=== PATIENT | female | born 1990 | race Caucasian/White ===

== ENCOUNTER 2017-10-24 13:55 | Emergency (ER) | payer BC ==
--- NOTE | 2017-10-24 15:13 | ED ---
Psych HPI - General Chief Complaint: Psychiatric Symptoms Stated Complaint: psych eval Time Seen by Provider: 10/24/17 14:04 Source: patient Mode of arrival: ambulatory - History of Present Illness Initial Comments: This patient is a 27-year-old woman who was sent here by her primary physician to have a psychiatric evaluation. The patient had seen her physician today and was describing having thoughts of ending her life. The patient states that she has long-standing history of depression, and had been taking Trintellix until recently had stopped due to adverse side effects. She states that since that time her depression appears to be somewhat worse and over the past few days to weeks she has had thoughts of suicide. The patient states that since she left her physician's office she has had a chance to speak with her mother and her sister, and she does not feel she is at acute risk of harming herself. She states she doesn't believe she needs to be admitted in the hospital now. She does see an outpatient counselor and she states that she has an existing appointment for tomorrow. MD Complaint: suicidal ideation, feels depressed -: days(s) Associated Psychiatric Symptoms: depression History of same: Yes Quality: getting worse Improves With: therapy, other Worsens With: none Context: not taking psychiatric medications Associated Symptoms: denies other symptoms - Related Data Home Medications Medication Instructions Recorded Confirmed Norgestimate-Ethinyl Estradiol 1 tab PO HS 09/20/17 10/24/17 [Sprintec 28 Day Tablet] Acetaminophen Tab [Tylenol Tab] 650 mg PO Q6H PRN 10/24/17 10/24/17 Allergies Allergy/AdvReac Type Severity Reaction Status Date / Time adhesive tape Allergy Rash/Hives Verified 10/24/17 14:19 bee venom protein (honey bee) Allergy Swelling Verified 10/24/17 14:19 vortioxetine Allergy Itching Verified 10/24/17 14:19 [From Trintellix] Review of Systems ROS Statement: Those systems with pertinent positive or pertinent negative responses have been documented in the HPI. ROS Other: All systems not noted in ROS Statement are negative. Constitutional: Denies: fever Respiratory: Denies: cough, dyspnea Cardiovascular: Denies: chest pain, palpitations, edema Gastrointestinal: Denies: abdominal pain, vomiting, diarrhea Genitourinary: Denies: dysuria Musculoskeletal: Denies: back pain Psychiatric: Reports: depression, suicidal thoughts. Denies: anxiety, auditory hallucinations, visual hallucinations, homicidal thoughts Past Medical History Past Medical History: No Reported History History of Any Multi-Drug Resistant Organisms: None Reported Past Surgical History: Adenoidectomy, Tonsillectomy Past Psychological History: Anxiety, Depression Smoking Status: Never smoker Past Alcohol Use History: None Reported Past Drug Use History: None Reported General Exam Limitations: no limitations General appearance: alert, in no apparent distress, obese Head exam: Present: atraumatic, normocephalic Eye exam: Present: normal appearance. Absent: scleral icterus, conjunctival injection ENT exam: Present: normal oropharynx Neck exam: Present: normal inspection Respiratory exam: Present: normal lung sounds bilaterally. Absent: respiratory distress, wheezes, rales, rhonchi, stridor Cardiovascular Exam: Present: regular rate, normal rhythm, normal heart sounds. Absent: systolic murmur, diastolic murmur, rubs, gallop Neurological exam: Present: alert, oriented X3, normal gait Psychiatric exam: Present: normal affect, depressed, suicidal ideation. Absent : agitated, anxious, flat affect, manic, homicidal ideation Skin exam: Present: warm, dry, intact, normal color. Absent: rash Course Vital Signs 10/24/17 14:10 Temperature 98.2 F Pulse Rate 90 Respiratory 16 Rate Blood Pressure 167/79 O2 Sat by Pulse 99 Oximetry Medical Decision Making - Lab Data Lab Results 10/24/17 Range/Units 15:30 Urine Opiates Screen Not Detected (NotDetected) Ur Oxycodone Screen Not Detected (NotDetected) Urine Methadone Screen Not Detected (NotDetected) Ur Propoxyphene Screen Not Detected (NotDetected) Ur Barbiturates Screen Not Detected (NotDetected) U Tricyclic Antidepress Not Detected (NotDetected) Ur Phencyclidine Scrn Not Detected (NotDetected) Ur Amphetamines Screen Not Detected (NotDetected) U Methamphetamines Scrn Not Detected (NotDetected) U Benzodiazepines Scrn Not Detected (NotDetected) Urine Cocaine Screen Not Detected (NotDetected) U Marijuana (THC) Screen Not Detected (NotDetected) Disposition Clinical Impression: Mood disorder Disposition: HOME SELF-CARE Condition: Good Instructions: Mood Disorders (ED) Referrals: Ana Fox III, MD [Primary Care Provider] - 1-2 days
[2017-10-24 15:51] LABS: Amphetamine Screen,Urine Not Detected (NotDetected); Barbiturate Screen,Urine Not Detected (NotDetected); Benzodiazepines Screen,Urine Not Detected (NotDetected); Cocaine Screen,Urine Not Detected (NotDetected); Methadone Screen, Urine Not Detected (NotDetected); Opiate Screen,Urine Not Detected (NotDetected); Oxycodone Screen, Urine Not Detected (NotDetected); Phencyclidine Screen,Urine Not Detected (NotDetected); Tricyclic Antidepressant,Urine Not Detected (NotDetected); Urn Cannabinoid Scrn Not Detected (NotDetected)
[2017-10-24 17:44] VITALS: BP 136/66; PULSE 78; RESP 18; TEMP 98
== END 2017-10-24 17:44 | disposition home or self-care (01) ==
LOC: EC 13:55
DX: F32.9 Major depressive disorder, single episode, unspecified (principal); R45.851 Suicidal ideations; Z79.3 Long term (current) use of hormonal contraceptives; Z91.048 Other nonmedicinal substance allergy status; Z91.030 Bee allergy status; Z88.8 Allergy status to other drugs, medicaments and biological substances
CPT/HCPCS: 80306; 82075; 99284

== ENCOUNTER → 2018-03-24 | Outpatient (CLI) | payer BC ==
[2018-03-24 15:19] VITALS: BP 148/90; PULSE 78; RESP 15; TEMP 99.2; BMI 59.0
--- NOTE | 2018-03-24 15:23 | P.HPBAR ---
Bariatric H&P - History & Physicial H&P Date: 03/24/18 History & Physicial: Visit/CC: sleeve consult Patient initial contact: Initial weight: 151.046 kg Initial weight in pounds: 333.00 Height: 5 ft 3 in Initial BMI: 59.0 Last weight: Current weight: 151.046 kg Current weight in pounds: 333.00 Current BMI: 59.0 [place] body weight (based on NIH guidelines): 52.163 kg Excess body weight loss: 0.0% The patient is a 27 year-old F who presents for Bariatric Assessment. She presents today for preoperative consultation for sleeve gastrectomy. She's had lifetime pros obesity. Her BMI is 59. Past Medical History Past Medical History: No Reported History History of Any Multi-Drug Resistant Organisms: None Reported Past Surgical History: Adenoidectomy, Tonsillectomy Additional Past Surgical History / Comment(s): T & A at age ~9. Past Anesthesia/Blood Transfusion Reactions: No Reported Reaction Past Psychological History: Anxiety, Depression Smoking Status: Never smoker Past Alcohol Use History: Rare Past Drug Use History: None Reported - Past Family History Mother Family Medical History: AFIB, Hypertension Father Family Medical History: Hypertension Additional Family Medical History / Comment(s): known history is limited regarding father Surgical - Exam Vital Signs Temp Pulse Resp BP 99.2 F 78 15 148/90 03/24/18 14:31 03/24/18 14:31 03/24/18 14:31 03/24/18 14:31 - General well developed, no distress - Eyes PERRL - Abdomen Abdomen: soft, non tender Bariatric Assessment & Plan Plan: I have discussed the patient and her sister regarding sleeve gastrectomy. We went over the risks and benefits of procedure including conversion O procedure and injury to the stomach liver spleen vagotomy dysphagia recurrent GERD symptoms and also discussed the risk of gastric staple line leak, bleeding or obstruction. The patient is scheduled for EGD. She'll follow-up in 8 weeks. Bariatric Checklist Checklist: Plan: Checklist: EGD: 1. Hiatal hernia: 2. H. Pylori: HgbA1c: Vitamin D: Smoking: Never smoker Primary care physician referral: Dr. Fox Psychiatry clearance: Cardiology clearance: Sleep study: Diet journal: VTE risk score: VTE risk level: Rehab needs at discharge:
== END | disposition home or self-care (01) ==
LOC: BARWHC3 13:35
PROVIDERS: ATTEND Surgery
DX: Z01.818 Encounter for other preprocedural examination (principal); E66.9 Obesity, unspecified; Z68.43 Body mass index [BMI] 50.0-59.9, adult
CPT/HCPCS: 99211

== ENCOUNTER 2018-03-28 06:40 | Day surgery (SDC) | payer BC ==
[2018-03-26 10:01] VITALS: BMI 59.0
[~2018-03-28 06:40] MED LIST: LACTATED RINGERS 1,000 ML IV SCH
[2018-03-28 07:01] VITALS: RESP 16; TEMP 98
[2018-03-28] MEDS ORDERED: PROPOFOL 10 MG/ML 20 ML VIAL IV ONE (07:38)
[2018-03-28] MEDS ORDERED: LIDOCAINE 1% INJ 10MG/ML (20 ML MDV) ONE (07:38)
--- NOTE | 2018-03-28 07:50 | P.GSHP ---
History of Present Illness H&P Date: 03/28/18 Chief Complaint: GERD This a 27-year-old female who presents today for EGD. She's had issues with GERD. Her BMI 60. Past Medical History Past Medical History: No Reported History History of Any Multi-Drug Resistant Organisms: None Reported Past Surgical History: Adenoidectomy, Tonsillectomy Additional Past Surgical History / Comment(s): T & A at age ~9. Past Anesthesia/Blood Transfusion Reactions: No Reported Reaction Smoking Status: Never smoker - Past Family History Mother Family Medical History: AFIB, Hypertension Father Family Medical History: Hypertension Additional Family Medical History / Comment(s): known history is limited regarding father Medications and Allergies Home Medications Medication Instructions Recorded Confirmed Type Norgestimate-Ethinyl Estradiol 1 tab PO HS 09/20/17 03/28/18 History [Sprintec 28 Day Tablet] Acetaminophen Tab [Tylenol Tab] 650 mg PO Q6H PRN 10/24/17 03/28/18 History Allergies Allergy/AdvReac Type Severity Reaction Status Date / Time adhesive tape Allergy Rash/Hives Verified 03/26/18 09:59 bee venom protein (honey bee) Allergy Swelling Verified 03/26/18 09:59 vortioxetine Allergy Itching Verified 03/26/18 09:59 [From Trintellix] Surgical - Exam Vital Signs Temp Pulse Resp BP Pulse Ox 98.0 F 72 16 145/95 98 03/28/18 06:57 03/28/18 06:57 03/28/18 06:57 03/28/18 06:57 03/28/18 06:57 - General well developed, no distress - Eyes PERRL - ENT normal pinna - Neck no masses - Respiratory normal expansion - Cardiovascular Rhythm: regular - Abdomen Abdomen: soft, non tender Assessment and Plan Assessment: GERD. We'll perform EGD.
--- NOTE | 2018-03-28 07:58 | P.OP ---
Date of Procedure: 03/28/18 Preoperative Diagnosis: Morbid obesity, BMI 59 GERD Postoperative Diagnosis: Antral gastritis Small hiatal hernia Minimal esophagitis Procedure(s) Performed: EGD Anesthesia: MAC Surgeon: Beni Ferrara Pathology: other (Antral, esophagus) Condition: stable Disposition: PACU Description of Procedure: The patient's placed on the endoscopy table in the lateral position. She received IV sedation. The gastroscope placed oropharynx passed in the esophagus into the stomach. Scope was then placed through the pylorus. The first and second portion of the duodenum appeared normal. Scope was then brought back the antrum this appeared mildly inflamed. The biopsy was performed. Scope was then retroflexed and remainder of the stomach appeared normal. There was a small hiatal hernia. The GE junction was at 39 cm. The distal esophagus appeared mildly inflamed and a biopsies performed. The proximal esophagus appeared normal. The scope was withdrawn from patient.
[2018-03-28 08:25] VITALS: BP 148/91; PULSE 76
== END 2018-03-28 08:39 | disposition home or self-care (01) ==
LOC: ORWHC2ENDO 06:40
PROVIDERS: ATTEND Surgery
DX: K29.50 Unspecified chronic gastritis without bleeding (principal); K21.0 Gastro-esophageal reflux disease with esophagitis; K44.9 Diaphragmatic hernia without obstruction or gangrene; E66.01 Morbid (severe) obesity due to excess calories; Z68.44 Body mass index [BMI] 60.0-69.9, adult; Z79.3 Long term (current) use of hormonal contraceptives; Z91.030 Bee allergy status; Z88.8 Allergy status to other drugs, medicaments and biological substances; Z91.048 Other nonmedicinal substance allergy status
CPT/HCPCS: 81025; 88305; 43239; J2001; J2704

== ENCOUNTER → 2018-04-07 | Outpatient (CLI) | payer BC ==
[2018-04-07 11:43] VITALS: BMI 58.8
[2018-04-07 13:10] VITALS: BP 155/82; PULSE 85; TEMP 99.2
--- NOTE | 2018-04-07 13:47 | P.HPBAR ---
Bariatric H&P - History & Physicial H&P Date: 04/07/18 History & Physicial: Visit/CC: presurgical visit Patient initial contact: Initial weight: 151.046 kg Initial weight in pounds: 333.00 Height: 5 ft 3 in Initial BMI: 59.0 Last weight: Current weight: 150.774 kg Current weight in pounds: 332.40 Current BMI: 58.8 [place] body weight (based on NIH guidelines): 52.163 kg Excess body weight loss: 0.2% The patient is a 27 year-old F who presents for Bariatric Assessment. Patient presents today for preoperative consultation. She is undergoing psychiatric evaluation today. Patient is morbidly obese with BMI 59. Over the risks and benefits of sleeve gastrectomy. Past Medical History Past Medical History: No Reported History History of Any Multi-Drug Resistant Organisms: None Reported Past Surgical History: Adenoidectomy, Tonsillectomy Additional Past Surgical History / Comment(s): T & A at age ~9. Past Anesthesia/Blood Transfusion Reactions: No Reported Reaction Past Psychological History: Anxiety, Depression Smoking Status: Never smoker Past Alcohol Use History: Rare Past Drug Use History: None Reported - Past Family History Mother Family Medical History: AFIB, Hypertension Father Family Medical History: Hypertension Additional Family Medical History / Comment(s): known history is limited regarding father Surgical - Exam Vital Signs Temp Pulse BP 99.2 F 85 155/82 04/07/18 13:08 04/07/18 13:08 04/07/18 13:08 - General well developed, no distress - Eyes PERRL - Abdomen Abdomen: soft, non tender Bariatric Assessment & Plan Plan: Morbid obesity with BMI 59. Patient was scheduled for sleeve gastrectomy once her authorization is complete. She'll follow-up in one month. Bariatric Checklist Checklist: Plan: Checklist: EGD: 1. Hiatal hernia: 2. H. Pylori: HgbA1c: Vitamin D: Smoking: Never smoker Primary care physician referral: Dr. Fox Psychiatry clearance: Cardiology clearance: Sleep study: Diet journal: VTE risk score: VTE risk level: Rehab needs at discharge:
== END | disposition home or self-care (01) ==
LOC: BARWHC3 08:30
PROVIDERS: ATTEND Surgery
DX: Z01.818 Encounter for other preprocedural examination (principal); F41.9 Anxiety disorder, unspecified; F32.9 Major depressive disorder, single episode, unspecified; E66.01 Morbid (severe) obesity due to excess calories; Z68.43 Body mass index [BMI] 50.0-59.9, adult; Z90.89 Acquired absence of other organs
CPT/HCPCS: 97804; 99211

== ENCOUNTER → 2018-05-07 | Outpatient (CLI) | payer BC ==
[2018-05-07 14:13] LABS: Basophils % (A) 0 %; Eosinophils # (A) 0.1 k/uL (0-0.7); Eosinophils % (A) 1 %; HCT 36.7 % (34.0-46.0); HGB 12.3 gm/dL (11.4-16.0); Lymphocytes # (A) 2.3 k/uL (1.0-4.8); Lymphocytes % (A) 26 %; MCH 28.3 pg (25.0-35.0); MCHC 33.5 g/dL (31.0-37.0); MCV 84.7 fL (80.0-100.0); Mean Platelet Volume 7.8; Monocytes # (A) 0.4 k/uL (0-1.0); Monocytes % (A) 5 %; Neutrophils # (A) 5.8 k/uL (1.3-7.7); Neutrophils % (A) 65 %; Platelet Count 237 k/uL (150-450); RBC 4.33 m/uL (3.80-5.40); RDW 12.9 % (11.5-15.5); WBC 8.9 k/uL (3.8-10.6)
[2018-05-07 14:27] LABS: ALT 29 U/L (9-52); AST 13 U/L (14-36); Albumin 3.7 g/dL (3.5-5.0); Alkaline Phosphatase 54 U/L (38-126); Anion Gap 8 mmol/L; Blood Urea Nitrogen 11 mg/dL (7-17); Calcium 9.1 mg/dL (8.4-10.2); Carbon Dioxide 24 mmol/L (22-30); Chloride 104 mmol/L (98-107); Glucose 85 mg/dL (74-99); Potassium 4.4 mmol/L (3.5-5.1); Sodium 136 mmol/L (137-145); Total Bilirubin 0.3 mg/dL (0.2-1.3); Total Protein 6.6 g/dL (6.3-8.2)
== END | disposition home or self-care (01) ==
LOC: LABPAT 13:18
PROVIDERS: ATTEND Surgery
DX: Z01.812 Encounter for preprocedural laboratory examination (principal)
CPT/HCPCS: 36415; 80053; 85025

== ENCOUNTER 2018-05-23 08:00 | Inpatient (IN) | payer BC ==
[~2018-05-23 08:00] MED LIST changes: +DEXAMETHASONE SOD PHOSPHATE 10 MG/ML 1 ML VIAL IV ONE; +ENOXAPARIN 40 MG/0.4 ML SYRINGE SQ ONE; -LACTATED RINGERS 1,000 ML IV SCH; +MIDAZOLAM 2 MG/2 ML VIAL IV PRN; +ONDANSETRON 4 MG/2 ML VIAL IVP ONE; +SCOPOLAMINE 1.5MG/72HR PATCH TRANSDERM ONE; +fentaNYL (PF) 50 MCG/ML 2 ML AMP IV PRN
[2018-05-23] MEDS: LACTATED RINGERS 1,000 ML IV SCH ×2 (10:41→12:35)
[2018-05-23] MEDS ORDERED: LIDOCAINE 1% 20 ML VIAL (10MG/ML) FOR IV START INTRADERMA ONE (10:42)
--- NOTE | 2018-05-23 12:47 | P.GSHP ---
History of Present Illness H&P Date: 05/23/18 Chief Complaint: Morbid obesity This a 27-year-old female who presents today for laparoscopic sleeve gastrectomy. Patient has had issues with morbid obesity. Her BMI is 55. Patient is well detailed procedure sleeve gastrectomy. She understands the risks and benefits including conversion to the open procedure and injury to the stomach, liver and spleen. She is also a risk of gastric sleeve staple line disruption, bleeding or scarring. Past Medical History Past Medical History: No Reported History History of Any Multi-Drug Resistant Organisms: None Reported Past Surgical History: Adenoidectomy, Tonsillectomy Additional Past Surgical History / Comment(s): EGD Past Anesthesia/Blood Transfusion Reactions: No Reported Reaction, Family History of Problems w/ Anesthesia Additional Past Anesthesia/Blood Transfusion Reaction / Comment(s): no hx blood transfusion,sister PONV Smoking Status: Never smoker - Past Family History Mother Family Medical History: AFIB, Hypertension Father Family Medical History: Hypertension Additional Family Medical History / Comment(s): known history is limited regarding father Medications and Allergies Home Medications Medication Instructions Recorded Confirmed Type Norgestimate-Ethinyl Estradiol 1 tab PO HS 09/20/17 05/23/18 History [Sprintec 28 Day Tablet] Acetaminophen Tab [Tylenol Tab] 650 mg PO Q6H PRN 10/24/17 05/23/18 History Allergies Allergy/AdvReac Type Severity Reaction Status Date / Time adhesive tape Allergy Rash/Hives Verified 05/23/18 10:12 bee venom protein (honey bee) Allergy Swelling Verified 05/23/18 10:12 vortioxetine Allergy Itching Verified 05/23/18 10:12 [From Trintellix] Surgical - Exam Vital Signs Temp Pulse Resp BP Pulse Ox 98.6 F 88 16 153/78 97 05/23/18 10:10 05/23/18 10:10 05/23/18 10:10 05/23/18 10:10 05/23/18 10:10 - General well developed, no distress - Eyes PERRL - ENT normal pinna - Neck no masses - Respiratory normal expansion - Cardiovascular Rhythm: regular - Abdomen Abdomen: soft, non tender Assessment and Plan Assessment: Review see, BMI 55. We'll perform sleeve gastrectomy..
[2018-05-23] MEDS ORDERED: LIDOCAINE 1% INJ 10MG/ML (20 ML MDV) ONE (13:05)
[2018-05-23] MEDS ORDERED: KETAMINE 10 MG/ML 20 ML VIAL ONE (13:05)
[2018-05-23] MEDS ORDERED: KETOROLAC 30 MG/ML 1 ML VIAL ONE (13:05)
[2018-05-23] MEDS ORDERED: ONDANSETRON 4 MG/2 ML VIAL ONE (13:05)
[2018-05-23] MEDS ORDERED: GLYCOPYRROLATE 0.2 MG/ML 2 ML VIAL ONE (13:05)
[2018-05-23] MEDS ORDERED: NEOSTIGMINE 1 MG/ML 10 ML VIAL ONE (13:05)
[2018-05-23] MEDS ORDERED: fentaNYL (PF) 50 MCG/ML 2 ML AMP ONE (13:05)
[2018-05-23] MEDS ORDERED: ROCURONIUM BROMIDE 10 MG/ML 10 ML VIAL IV ONE (13:05)
[2018-05-23] MEDS ORDERED: PROPOFOL 10 MG/ML 20 ML VIAL IV ONE (13:05)
[2018-05-23] MEDS ORDERED: diphenhydrAMINE 50 MG/ML 1 ML VIAL ONE (13:05)
[2018-05-23] MEDS ORDERED: HYDROmorphone (PF) 1 MG/ML ONE (13:05)
[2018-05-23] MEDS ORDERED: MIDAZOLAM 2 MG/2 ML VIAL ONE (13:05)
[2018-05-23] MEDS ORDERED: SUCCINYLCHOLINE CHLORIDE 100 MG/5 ML SYR IV ONE (13:05)
[2018-05-23] MEDS ORDERED: BUPIVACAIN-EPI 0.5%-1:200,000 30 ML VIAL SQ ONE (13:40)
[2018-05-23] MEDS ORDERED: LACTATED RINGERS 1,000 ML IV ONE ×2 (14:27)
[2018-05-23] MEDS ORDERED: ONDANSETRON 4 MG/2 ML VIAL IVP PRN (15:02)
[2018-05-23] MEDS ORDERED: NALOXONE 0.4 MG/ML 1 ML VIAL IV PRN (15:02)
[2018-05-23] MEDS ORDERED: HYOSCYAMINE ORAL DROPS 1.875 MG/15 ML BOTTLE PO PRN (15:02)
[2018-05-23] MEDS ORDERED: HYDROmorphone 1 MG/ML 1 ML SYRINGE IVP PRN (15:02)
[2018-05-23] MEDS ORDERED: HYDROcodone/APAP 15 ML SOLUTION PO PRN (15:02)
[2018-05-23] MEDS ORDERED: HYDROmorphone 1 MG/ML 1 ML SYRINGE IVP ONE ×2 (15:15→15:20)
--- NOTE | 2018-05-23 15:17 | P.OP ---
Date of Procedure: 05/23/18 Preoperative Diagnosis: Morbid obesity, BMI 55 Postoperative Diagnosis: Morbid obesity, BMI 55 Procedure(s) Performed: Laparoscopic sleeve yesterday. Laparoscopic repair of hiatal hernia Anesthesia: MIMI Surgeon: Beni Ferrara Estimated Blood Loss (ml): 5 Pathology: none sent Condition: stable Disposition: PACU Description of Procedure: MThe patient was placed on the operating room table in the supine position. She received general anesthesia and then was placed in dorsal lithotomy position. Her abdomen was prepped and draped in sterile fashion. The skin incision sites were anesthetized 1% local Xylocaine. And then the skin was incised with an 11 blade in the left lateral position. Using a blade less trocar under direct visualization the peritoneal cavity was entered. The abdomen was insufflated and then a 5 mm laparoscope was placed into the peritoneal cavity. A 5 mm trocar was placed in the right epigastric, and right lateral position. A 15 mm trocar was placed in the supra-umbilical position and another 5 mm trocar was placed in the left lateral position. The left lateral lobe of the liver was retracted. The stomach was visualized. The greater curvature of the stomach was then dissected using the Harmonic scissors. The dissection occurred approximately 5 cm from the pylorus to the level of the left evelio. There was a hiatal hernia seen. The evelio of the diaphragm were then dissected using Harmonic scissors. Have hernia was visualized. And then the hiatal hernias repaired using 2-0 Ethibond suture. At this point a 40-Romanian bougie dilator was placed the oropharynx and passed into the esophagus and into the stomach by the QUALITY PROCESS AUDITOR. The sleeve gastrectomy was performed by using the powered echelon stapler with a seam guard buttress material. Sequential firings of the stapler were performed. The gastric remnant was then brought out through the 15 mm trocar site. The dilator was withdrawn. And a orogastric tube was replaced into the stomach. The stomach was insufflated with 200 mL of methylene blue normal saline. There was no evidence of extravasation. The abdomen was irrigated there is no bleeding seen. The Kaushal-Kwabena device was used to close the 15 mm trocar with 0 Vicryl. Skin was closed with interrupted 3-0 Monocryl sutures once the trochars withdrawn. Dermabond dressing was applied. Patient was sent to recovery in stable condition.
[2018-05-23] MEDS: ALBUTEROL NEBULIZED 2.5 MG/3 ML INHALATION SCH ×2 (16:06→20:04)
[2018-05-23 17:57] VITALS: BMI 55.3
[2018-05-23] MEDS: 0.9% NACL WITH KCL 20 MEQ/L 1,000 ML IV SCH ×2 (17:58→21:25)
[2018-05-23] MEDS: KETOROLAC 30 MG/ML 1 ML VIAL IVP SCH (18:39)
[2018-05-23] MEDS: AMPICILLIN-SULBACTAM 3 GM in SODIUM CHLORIDE 0.9% 100 ML IVPB SCH (18:41)
[2018-05-23] MEDS: SIMETHICONE 40 MG/0.6 ML DROPS 2,000 MG/30 ML BOTTLE PO PRN (21:25)
[2018-05-24] MEDS: AMPICILLIN-SULBACTAM 3 GM in SODIUM CHLORIDE 0.9% 100 ML IVPB SCH (00:36)
[2018-05-24] MEDS: KETOROLAC 30 MG/ML 1 ML VIAL IVP SCH ×3 (00:36→11:54)
[2018-05-24] MEDS: 0.9% NACL WITH KCL 20 MEQ/L 1,000 ML IV SCH (04:35)
[2018-05-24 07:29] LABS: Anion Gap 14 mmol/L; Blood Urea Nitrogen 5 mg/dL (7-17); Calcium 8.9 mg/dL (8.4-10.2); Carbon Dioxide 18 mmol/L (22-30); Chloride 108 mmol/L (98-107); Magnesium 1.8 mg/dL (1.6-2.3); Phosphorus 2.7 mg/dL (2.5-4.5); Potassium 4.9 mmol/L (3.5-5.1); Sodium 140 mmol/L (137-145)
[2018-05-24] MEDS ORDERED: 1: MVI, ADULT NO.4 WITH VIT K 10 ML, THIAMINE 100 MG, FOLIC ACID 1 MG, POTASSIUM CHLORID IV SCH ×6 (08:00)
[2018-05-24 08:04] LABS: Basophils % (A) 0 %; Eosinophils % (A) 0 %; HCT 37.6 % (34.0-46.0); HGB 12.4 gm/dL (11.4-16.0); Lymphocytes % (A) 13 %; MCH 28.2 pg (25.0-35.0); MCHC 32.9 g/dL (31.0-37.0); MCV 85.6 fL (80.0-100.0); Mean Platelet Volume 8.2; Monocytes # (A) 0.3 k/uL (0-1.0); Monocytes % (A) 5 %; Neutrophils # (A) 6.2 k/uL (1.3-7.7); Neutrophils % (A) 82 %; Platelet Count 260 k/uL (150-450); RBC 4.39 m/uL (3.80-5.40); RDW 13.3 % (11.5-15.5); WBC 7.6 k/uL (3.8-10.6)
--- NOTE | 2018-05-24 08:40 | FL ---
EXAMINATION TYPE: FL UGI DATE OF EXAM ORDERED: 05/24/2018 8:22 AM HISTORY: Status post gastric sleeve procedure. COMPARISON: None. FINDINGS: The patient drank contrast with ease. There was mild holdup of contrast at the GE junction . There is no significant free air. The ligament of Treitz is in the normal location. There is no juana dence of extravasation. IMPRESSION: STATUS POST GASTRIC SLEEVE PROCEDURE.
[2018-05-24] MEDS ORDERED: PANTOPRAZOLE 40 MG/10 ML VIAL IV SCH (09:00)
[2018-05-24] MEDS ORDERED: ENOXAPARIN 40 MG/0.4 ML SYRINGE SQ SCH (09:00)
[2018-05-24] MEDS: ALBUTEROL NEBULIZED 2.5 MG/3 ML INHALATION SCH ×2 (09:08→12:27)
--- NOTE | 2018-05-24 09:11 | P.DS ---
Providers Date of admission: 05/23/18 08:49 Expected date of discharge: 05/24/18 Attending physician: Beni Ferrara Consults: 05/23/18 15:02 Consult Physician Routine Consulting Provider: Nataliya Morelos Consult Reason/Comments: Medical management Do you want consulting provider notified?: Yes Primary care physician: Ana [facility] Course: This is a 27-year-old female who underwent laparoscopic sleeve district yesterday. Patient on well postoperatively. Please see chart for details. Procedures: Leonardo sleeve gastrectomy Patient Condition at Discharge: Good Plan - Discharge Summary Discharge Rx Participant: Yes New Discharge Prescriptions: New Bisacodyl [Dulcolax] 5 mg PO DAILY PRN #10 tablet. PRN Reason: Constipation Ondansetron Odt [Zofran Odt] 4 mg PO Q8HR PRN #9 tab PRN Reason: Nausea Simethicone 40 mg/0.6 ml Drops [Mylicon Drops] 40 mg PO [facility] PRN #30 ml PRN Reason: Gas HYDROcodone/APAP 7.5-325MG [[place] 7.5-325] 1 tab PO Q4H PRN 3 Days #18 tab PRN Reason: Pain Omeprazole 40 mg PO DAILY #60 capsule. No Action Norgestimate-Ethinyl Estradiol [Sprintec 28 Day Tablet] 1 tab PO HS Acetaminophen Tab [Tylenol Tab] 650 mg PO Q6H PRN PRN Reason: Pain Discharge Medication List Norgestimate-Ethinyl Estradiol [Sprintec 28 Day Tablet] 1 tab PO HS 09/20/17 [ History] Acetaminophen Tab [Tylenol Tab] 650 mg PO Q6H PRN 10/24/17 [History] Bisacodyl [Dulcolax] 5 mg PO DAILY PRN #10 tablet. 05/24/18 [Rx] HYDROcodone/APAP 7.5-325MG [[place] 7.5-325] 1 tab PO Q4H PRN 3 Days #18 tab 05/24 [Rx] Omeprazole 40 mg PO DAILY #60 capsule. 05/24/18 [Rx] Ondansetron Odt [Zofran Odt] 4 mg PO Q8HR PRN #9 tab 05/24/18 [Rx] Simethicone 40 mg/0.6 ml Drops [Mylicon Drops] 40 mg PO [facility] PRN #30 ml [Rx] Follow up Appointment(s)/Referral(s): [facility],. [NON-STAFF] - 2 Weeks
--- NOTE | 2018-05-24 10:10 | CONS ---
CONSULTATION DATE OF SERVICE: 05/23/2018. REASON FOR CONSULTATION: Advice regarding GERD and other medical issues, requested by Dr. Ferrara. HISTORY OF PRESENT ILLNESS: This 27-year-old woman with a past history of GERD, history of anxiety and depression, underwent laparoscopic sleeve as well as laparoscopic repair of hiatal hernia. There is no history of fevers or rigors. No history of headache, loss of consciousness , seizures, chest pain, palpitations. PAST MEDICAL HISTORY: History of GERD, anxiety, depression. MEDICATIONS: Prior to admission include home medications are: 1. 28 daily at bedtime. 2. Tylenol 650 every 6 hours p.r.n. ALLERGIES: DURAGESIC, BEE VENOM, TRINTELLIX. FAMILY HISTORY: History of atrial fibrillation, history of hypertension. SOCIAL HISTORY: No history of smoking. No history of alcohol intake. REVIEW OF SYSTEMS: ENT: No diminished vision. CARDIOVASCULAR: No angina or palpitations. RESPIRATORY: No cough or hemoptysis. GI: No nausea. : As mentioned. NERVOUS SYSTEM: No numbness or weakness. ALLERGY/IMMUNOLOGY: As mentioned. MUSCULOSKELETAL: As mentioned. HEMATOLOGY: As mentioned. ENDOCRINE: No history of diabetes or hypothyroidism. CONSTITUTIONAL: As mentioned. DERMATOLOGY: Negative. RHEUMATOLOGY: Negative PSYCHIATRY: As mentioned. PHYSICAL EXAMINATION: Alert, oriented x3. VITAL SIGNS: Pulse 94, blood pressure 140/88, respiration 18, temperature 98.6, pulse ox 95% on 2 L. HEENT: Conjunctivae normal. Oral mucosa moist. NECK: No jugular venous distention. No lymph nodes palpable. CARDIOVASCULAR: S1 and S2. LUNGS: Breath sounds diminished in the bases. ABDOMEN: Soft, status post surgery. LEGS: No edema. No cyanosis. NERVOUS SYSTEM: No focal deficits. JOINTS: No active deformities. LABS: CBC and CMP done. Coags done for surgery within normal limits. ASSESSMENT: 1. Status post laparoscopic sleeve and repair of hiatal hernia. 2. Gastroesophageal reflux disease. 3. History of anxiety and depression. 4. Tonsillectomy and adenoidectomy. RECOMMENDATIONS: In this 27-year-old woman who presented with multiple medical problems, we will monitor the patient closely, continue the current management and symptomatic treatment. DVT prophylaxis. Incentive spirometry. Otherwise, proton pump inhibitors. Pain management. We will follow the patient closely. The patient may be asked to follow up with primary care physician as an outpatient. Thank you, Dr. Ferrara, for letting us participate in the care of this patient. MMODL / IJN: [id number] / STEVIE
[2018-05-24] MEDS: SIMETHICONE 40 MG/0.6 ML DROPS 2,000 MG/30 ML BOTTLE PO PRN (13:16)
[2018-05-24 14:15] VITALS: BP 137/72; PULSE 85; RESP 16; TEMP 98.1
--- NOTE | 2018-05-24 15:37 | PN ---
PROGRESS NOTE DATE OF SERVICE: 05/24/2018 This 26-year-old woman who was admitted after laparoscopic sleeve and repair of hiatal hernia is improved significantly. No chest pain or palpitation. No fever. PHYSICAL EXAMINATION: On exam, alert and oriented x3. The pulse is 104, blood pressure 123/82, respiration 14, temperature 98.2, pulse ox 95% on room air. HEENT: Conjunctivae normal. NECK: No jugular venous distention. CARDIOVASCULAR: S1 and S2 muffled. RESPIRATORY: Breath sounds diminished at the bases. A few scattered rhonchi. No crackles. ABDOMEN: Soft, status post surgery. LEGS: No edema, no swelling. NERVOUS SYSTEM: No focal deficits. LABS: CBC, BMP noted. ASSESSMENT: 1. Status post laparoscopic sleeve and repair of hiatal hernia. 2. Gastroesophageal reflux disease. 3. History of anxiety and depression. 4. Tonsillectomy and adenoidectomy. 5. Obesity with body mass index of 55.3. RECOMMENDATIONS AND DISCUSSION: Recommend to continue current medications, incentive spirometry. Resume home medications. Closely follow with the primary physician and the rest of the recommendations per Surgery. Further recommendations to follow. MMODL / IJN: [id number] /
== END 2018-05-24 16:15 | disposition home or self-care (01) | DRG 621 ==
LOC: 2ORMAIN 08:49 → 3SUR 14:42
PROVIDERS: ADMIT Surgery; ATTEND Surgery
PROC: 0BQT4ZZ Repair Diaphragm, Percutaneous Endoscopic Approach (ICD-10-PCS; 2018-05-23)
PROC: 0DB64Z3 Excision of Stomach, Percutaneous Endoscopic Approach, Vertical (ICD-10-PCS; principal; 2018-05-23 11:25)
DX: E66.01 Morbid (severe) obesity due to excess calories (principal); Z68.43 Body mass index [BMI] 50.0-59.9, adult; F32.9 Major depressive disorder, single episode, unspecified; K44.9 Diaphragmatic hernia without obstruction or gangrene; K21.9 Gastro-esophageal reflux disease without esophagitis; F41.9 Anxiety disorder, unspecified; Z71.3 Dietary counseling and surveillance; Z79.899 Other long term (current) drug therapy; Z91.030 Bee allergy status; Z88.8 Allergy status to other drugs, medicaments and biological substances; Z91.048 Other nonmedicinal substance allergy status; Z82.49 Family history of ischemic heart disease and other diseases of the circulatory system
CPT/HCPCS: 74240; 80051; 81025; 82310; 82565; 83735; 84100; 84520; 85025; 88307; 94640

== ENCOUNTER → 2018-06-02 | Outpatient (CLI) | payer BC ==
[2018-06-02 14:19] VITALS: BP 136/83; PULSE 76; RESP 16; TEMP 98.4; BMI 53.4
--- NOTE | 2018-06-02 17:19 | P.HPBAR ---
Bariatric H&P - History & Physicial H&P Date: 06/02/18 History & Physicial: Visit/CC: post sleeve Patient initial contact: Initial weight: 151.046 kg Initial weight in pounds: 333.00 Height: 5 ft 3 in Initial BMI: 59.0 Last weight: Current weight: 136.645 kg Current weight in pounds: 301.25 Current BMI: 53.4 Nicholls body weight (based on NIH guidelines): 52.163 kg Excess body weight loss: 14.5% The patient is a 28 year-old F who presents for Bariatric Assessment. The patient presents today for sleeve gastrectomy follow-up. She is doing quite well. Her current BMI is 53. She has some mild GERD. Past Medical History Past Medical History: GERD/Reflux History of Any Multi-Drug Resistant Organisms: None Reported Past Surgical History: Adenoidectomy, Tonsillectomy Additional Past Surgical History / Comment(s): T & A at age ~9. Past Anesthesia/Blood Transfusion Reactions: No Reported Reaction Past Psychological History: Anxiety, Depression Smoking Status: Never smoker Past Alcohol Use History: Rare Past Drug Use History: None Reported - Past Family History Mother Family Medical History: AFIB, Hypertension Father Family Medical History: Hypertension Additional Family Medical History / Comment(s): known history is limited regarding father Surgical - Exam Vital Signs Temp Pulse Resp BP 98.4 F 76 16 136/83 06/02/18 14:16 06/02/18 14:16 06/02/18 14:16 06/02/18 14:16 - General well developed, no distress - Abdomen Abdomen: soft, non tender Bariatric Assessment & Plan Plan: Status post sleeve gastrectomy. Patient is doing quite well. Her GERD is minimal and will be observed. Bariatric Checklist Checklist: Plan: Checklist: EGD: 1. Hiatal hernia: 2. H. Pylori: HgbA1c: Vitamin D: Smoking: Never smoker Primary care physician referral: Dr. Fox Psychiatry clearance: Cardiology clearance: Sleep study: Diet journal: VTE risk score: VTE risk level: Rehab needs at discharge:
== END | disposition home or self-care (01) ==
LOC: BARWHC3 13:00
PROVIDERS: ATTEND Surgery
DX: Z48.815 Encounter for surgical aftercare following surgery on the digestive system (principal); K21.9 Gastro-esophageal reflux disease without esophagitis; E66.01 Morbid (severe) obesity due to excess calories; Z68.43 Body mass index [BMI] 50.0-59.9, adult; Z98.84 Bariatric surgery status
CPT/HCPCS: 97803; 99211

== ENCOUNTER 2018-06-07 21:30 | Emergency (ER) | payer BC ==
[2018-06-07 21:38] VITALS: RESP 18
[2018-06-07] MEDS ORDERED: SODIUM CHLORIDE 0.9% 1,000 ML IV STA (22:38)
[2018-06-07] MEDS ORDERED: KETOROLAC 30 MG/ML 1 ML VIAL IVP STA (22:39)
[2018-06-07 23:16] LABS: Basophils # (A) 0.1 k/uL (0-0.2); Basophils % (A) 0 %; Eosinophils # (A) 0.2 k/uL (0-0.7); Eosinophils % (A) 2 %; HCT 43.7 % (34.0-46.0); HGB 14.7 gm/dL (11.4-16.0); Lymphocytes # (A) 2.7 k/uL (1.0-4.8); Lymphocytes % (A) 24 %; MCH 28.4 pg (25.0-35.0); MCHC 33.6 g/dL (31.0-37.0); MCV 84.6 fL (80.0-100.0); Mean Platelet Volume 9.6; Monocytes # (A) 0.7 k/uL (0-1.0); Monocytes % (A) 6 %; Neutrophils # (A) 7.4 k/uL (1.3-7.7); Neutrophils % (A) 66 %; Platelet Count 246 k/uL (150-450); RBC 5.17 m/uL (3.80-5.40); RDW 13.9 % (11.5-15.5); WBC 11.3 k/uL (3.8-10.6)
[2018-06-07 23:30] LABS: ALT 42 U/L (9-52); AST 23 U/L (14-36); Albumin 4.4 g/dL (3.5-5.0); Alkaline Phosphatase 69 U/L (38-126); Amylase 45 U/L (30-110); Anion Gap 17 mmol/L; Blood Urea Nitrogen 6 mg/dL (7-17); Calcium 9.3 mg/dL (8.4-10.2); Carbon Dioxide 20 mmol/L (22-30); Chloride 103 mmol/L (98-107); Glucose 82 mg/dL (74-99); Lipase 200 U/L (23-300); Potassium 3.7 mmol/L (3.5-5.1); Sodium 140 mmol/L (137-145); Total Bilirubin 0.7 mg/dL (0.2-1.3); Total Protein 7.7 g/dL (6.3-8.2)
[2018-06-07 23:36] LABS: Amorphous Sediment,Urine Rare /hpf; Appearance,Urine Cloudy (Clear); Bacteria,Urine Rare /hpf; Bilirubin,Urine 2+ (Negative); Blood,Urine Trace (Negative); Color,Urine Yellow; Glucose,Urine (UA) Negative (Negative); Hyaline Casts,Urine 143 /lpf (0-2); Ketones,Urine 4+ (Negative); Leukocyte Esterase,Urine Moderate (Negative); Mucus,Urine Many /hpf; Nitrite,Urine Negative (Negative); Protein,Urine 2+ (Negative); RBC,Urine 10 /hpf (0-5); Specific Gravity,Urine 1.027 (1.001-1.035); Squamous Epithelial Cell,Urine 37 /hpf (0-4); WBC,Urine 16 /hpf (0-5)
--- NOTE | 2018-06-07 23:54 | CT ---
EXAMINATION TYPE: CT abdomen pelvis w con DATE OF EXAM: 06/07/2018 COMPARISON: None HISTORY: No prior, pt is s/p bariatric surgery (gastric sleeve) 05/23/18, presents with low abd and gr oin pain CT DLP: 3552.30 mGycm Automated exposure control for dose reduction was used. TECHNIQUE: Helical acquisition of images was performed from the lung bases through the pelvis. CONTRAST: Performed with Oral Contrast and with IV Contrast, patient injected with 100 mL of Isovue 300. FINDINGS: Lung bases are clear of infiltrate. There is no pleural effusion. There are surgical clips from [facility] surgery. Liver and spleen appear normal. Bile ducts are not dilated. There is no evidence of a pancreatic mass . Gallbladder appears normal. There is no adrenal mass. Kidneys show satisfactory contrast opacification. There is no hydronephrosi s. There is no retroperitoneal adenopathy. The appendix appears normal. There is no intestinal wall thickening. There are no dilated loops. Ther e is no ascites. There are multiple cysts on both ovaries. Uterus is anteverted. Bladder distends smo othly. There is no evidence of a pelvic mass. The lumbar spine is intact. IMPRESSION: MULTIPLE BILATERAL OVARIAN CYSTS THAT MEASURE UP TO 2.5 CM. NO FREE AIR OR FLUID. NORMAL APPENDIX. NO SIGN OF ACUTE ABDOMEN AND PELVIS.
[2018-06-08] MEDS ORDERED: SODIUM CHLORIDE 0.9% 1,000 ML IV STA (00:16)
[2018-06-08] MEDS ORDERED: CEPHALEXIN 500MG STARTER PACK 4 CAP BTL PO STA (00:17)
--- NOTE | 2018-06-08 00:26 | ED ---
General Adult HPI - General Source: patient, RN notes reviewed Mode of arrival: ambulatory Limitations: no limitations <Bairon Ha P - Last Filed: 06/08/18 00:50> <Mahsa Lyons P - Last Filed: 06/08/18 06:51> - General Chief complaint: Abdominal Pain Stated complaint: Abd Pain Time Seen by Provider: 06/07/18 22:09 - History of Present Illness Initial comments: 28-year-old female presents to the emergency department for a chief complaint of abdominal pain x one day. Patient states she had gastric sleeve surgery 15 days ago. Patient states this has been uncomplicated and she recently saw the surgeon. However today patient started to have right lower abdominal pain as well as mild epigastric pain. Patient describes the lower abdominal pain as a sharp pain that is constant. She denies any intermittent pain in the right lower abdomen. She also complains of pain on the sides of her abdomen bilaterally. Patient denies any nausea or vomiting. She states she has been eating and drinking but in small amounts due to the gastric sleeve. Patient denies any urinary symptoms. Patient denies any back pain. Patient has no other complaints at this time including shortness of breath, chest pain, abdominal pain, nausea or vomiting, headache, or visual changes. (Bairon Ha) - Related Data Home Medications Medication Instructions Recorded Confirmed Norgestimate-Ethinyl Estradiol 1 tab PO HS 09/20/17 06/03/18 [Sprintec 28 Day Tablet] Acetaminophen Tab [Tylenol Tab] 650 mg PO Q6H PRN 10/24/17 06/03/18 Previous Rx's Medication Instructions Recorded Bisacodyl [Dulcolax] 5 mg PO DAILY PRN #10 tablet. 05/24/18 HYDROcodone/APAP 7.5-325MG [[place] 1 tab PO Q4H PRN 3 Days #18 tab 05/24/18 7.5-325] Omeprazole 40 mg PO DAILY #60 capsule. 05/24/18 Ondansetron Odt [Zofran Odt] 4 mg PO Q8HR PRN #9 tab 05/24/18 Simethicone 40 mg/0.6 ml Drops 40 mg PO PCHS PRN #30 ml 05/24/18 [Mylicon Drops] Cephalexin [Keflex] 500 mg PO Q6HR 10 Days cap 06/08/18 Allergies Allergy/AdvReac Type Severity Reaction Status Date / Time adhesive tape Allergy Rash/Hives Verified 06/07/18 21:38 bee venom protein (honey bee) Allergy Swelling Verified 06/07/18 21:38 vortioxetine Allergy Itching Verified 06/07/18 21:38 [From [employer]] Review of Systems ROS Other: All systems not noted in ROS Statement are negative. <Bairon Ha P - Last Filed: 06/08/18 00:50> ROS Other: All systems not noted in ROS Statement are negative. <Mahsa Lyons P - Last Filed: 06/08/18 06:51> ROS Statement: Those systems with pertinent positive or pertinent negative responses have been documented in the HPI. Past Medical History Past Medical History: GERD/Reflux History of Any Multi-Drug Resistant Organisms: None Reported Past Surgical History: Adenoidectomy, Tonsillectomy Additional Past Surgical History / Comment(s): T & A at age ~9. , gastric sleeve Past Anesthesia/Blood Transfusion Reactions: No Reported Reaction Past Psychological History: Anxiety, Depression Smoking Status: Never smoker Past Alcohol Use History: Rare Past Drug Use History: None Reported - Past Family History Mother Family Medical History: AFIB, Hypertension Father Family Medical History: Hypertension Additional Family Medical History / Comment(s): known history is limited regarding father <Bairon Ha P - Last Filed: 06/08/18 00:50> General Exam Limitations: no limitations General appearance: alert, in no apparent distress Head exam: Present: atraumatic, normocephalic, normal inspection Eye exam: Present: normal appearance, PERRL, EOMI. Absent: scleral icterus, conjunctival injection, periorbital swelling ENT exam: Present: normal exam, normal oropharynx, mucous membranes moist, TM's normal bilaterally, normal external ear exam Neck exam: Present: normal inspection, full ROM. Absent: tenderness, meningismus, lymphadenopathy Respiratory exam: Present: normal lung sounds bilaterally. Absent: respiratory distress, wheezes, rales, rhonchi, stridor Cardiovascular Exam: Present: regular rate, normal rhythm, normal heart sounds. Absent: systolic murmur, diastolic murmur, rubs, gallop, clicks GI/Abdominal exam: Present: soft, tenderness (Mild right lower quadrant tenderness, mild epigastric and left upper quadrant tenderness, no tenderness elsewhere in the abdomen), normal bowel sounds, other (Positive obturator sign, negative Alvarez sign.). Absent: distended, guarding, rebound, rigid Extremities exam: Present: normal inspection, full ROM, normal capillary refill. Absent: tenderness, pedal edema, joint swelling, calf tenderness Back exam: Absent: CVA tenderness (R), CVA tenderness (L) Neurological exam: Present: alert, oriented X3, CN II-XII intact Psychiatric exam: Present: normal affect, normal mood Skin exam: Present: warm, dry, intact, normal color. Absent: rash <Bairon Ha P - Last Filed: 06/08/18 00:50> Vital Signs 06/07/18 06/07/18 06/08/18 21:35 23:12 01:37 Temperature 98.3 F 97.8 F Pulse Rate 73 71 68 Respiratory 18 18 18 Rate Blood Pressure 113/81 121/65 118/72 O2 Sat by Pulse 100 99 98 Oximetry Medical Decision Making - Lab Data Result diagrams: 06/07/18 23:00 06/07/18 23:00 <Bairon Ha P - Last Filed: 06/08/18 00:50> - Lab Data Result diagrams: 06/07/18 23:00 06/07/18 23:00 <Mahsa Lyons P - Last Filed: 06/08/18 06:51> - Medical Decision Making 28 year old female presents to the emergency determine for a chief complaint of abdominal pain times one day. Patient had gastric bypass surgery 15 days ago. Patient states she has been eating and drinking without difficulty but obviously in smaller amounts. Patient states she has had mild diarrhea when she eats dairy since the surgery. Patient denies any nausea or vomiting. On exam patient has mild right lower quadrant tenderness as well as epigastric and left upper quadrant tenderness. No rebound tenderness noted. Positive obturator sign. Vitals are within normal limits with a temperature of 98.3 and pulse rate of 71. CBC unremarkable with a white blood cell count of 11.3. CMP unremarkable. Patient does have an anion gap of 17 along with ketones in the urine which is likely related to a starvation ketosis postop gastric sleeve. Patient given 2 L of fluid for this. Urinalysis also demonstrates a urinary tract infection with moderate leukocyte esterase as well as white blood cell clumps. Patient given Keflex for UTI. CT abdomen and pelvis shows multiple bilateral ovarian cysts that measure up to 2.5 cm. No free air or fluid. Normal appendix. No sign of acute abdomen or pelvis. Patient will follow-up with her surgeon. She will continue to drink fluids. Patient will take Keflex for urinary tract infection. Urine was cultured. Patient aware to return to the emergency Department if she has any worsening symptoms or fevers. (Bairon Ha) I was available for consultation in the emergency department. The history and physical exam were done by the midlevel provider. I was consulted for this patient's care. I reviewed the case with the midlevel provider and based on their presentation of the patient, I agree with the assessment, medical decision making and plan of care as documented. (Mahsa Lyons) - Lab Data Lab Results 06/07/18 06/07/18 06/07/18 Range/Units 22:30 22:30 23:00 WBC (3.8-10.6) k/uL RBC (3.80-5.40) m/uL Hgb (11.4-16.0) gm/dL Hct (34.0-46.0) % MCV (80.0-100.0) fL MCH (25.0-35.0) pg MCHC (31.0-37.0) g/dL RDW (11.5-15.5) % Plt Count (150-450) k/uL Neutrophils % % Lymphocytes % % Monocytes % % Eosinophils % % Basophils % % Neutrophils # (1.3-7.7) k/uL Lymphocytes # (1.0-4.8) k/uL Monocytes # (0-1.0) k/uL Eosinophils # (0-0.7) k/uL Basophils # (0-0.2) k/uL Sodium 140 (137-145) mmol/L Potassium 3.7 (3.5-5.1) mmol/L Chloride 103 (98-107) mmol/L Carbon Dioxide 20 L (22-30) mmol/L Anion Gap 17 mmol/L BUN 6 L (7-17) mg/dL Creatinine 0.60 (0.52-1.04) mg/dL Est GFR (CKD-EPI)AfAm >90 (>60 ml/min/1.73 sqM) Est GFR (CKD-EPI)NonAf >90 (>60 ml/min/1.73 sqM) Glucose 82 (74-99) mg/dL Calcium 9.3 (8.4-10.2) mg/dL Total Bilirubin 0.7 (0.2-1.3) mg/dL AST 23 (14-36) U/L ALT 42 (9-52) U/L Alkaline Phosphatase 69 (38-126) U/L Total Protein 7.7 (6.3-8.2) g/dL Albumin 4.4 (3.5-5.0) g/dL Amylase 45 (30-110) U/L Lipase 200 (23-300) U/L Urine Color Yellow Urine Appearance Cloudy H (Clear) Urine pH 6.0 (5.0-8.0) Ur Specific [place] 1.027 (1.001-1.035) Urine Protein 2+ H (Negative) Urine Glucose (UA) Negative (Negative) Urine Ketones 4+ H (Negative) Urine Blood Trace H (Negative) Urine Nitrite Negative (Negative) Urine Bilirubin 2+ H (Negative) Urine Urobilinogen 8.0 (<2.0) mg/dL Ur Leukocyte Esterase Moderate H (Negative) Urine RBC 10 H (0-5) /hpf Urine WBC 16 H (0-5) /hpf Urine WBC Clumps Rare H (None) /hpf Ur Squamous Epith Cells 37 H (0-4) /hpf Amorphous Sediment Rare H (None) /hpf Urine Bacteria Rare H (None) /hpf Hyaline Casts 143 H (0-2) /lpf Urine Mucus Many H (None) /hpf Urine HCG, Qual Not Detected (Not Detectd) 06/07/18 Range/Units 23:00 WBC 11.3 H (3.8-10.6) k/uL RBC 5.17 (3.80-5.40) m/uL Hgb 14.7 (11.4-16.0) gm/dL Hct 43.7 (34.0-46.0) % MCV 84.6 (80.0-100.0) fL MCH 28.4 (25.0-35.0) pg MCHC 33.6 (31.0-37.0) g/dL RDW 13.9 (11.5-15.5) % Plt Count 246 (150-450) k/uL Neutrophils % 66 % Lymphocytes % 24 % Monocytes % 6 % Eosinophils % 2 % Basophils % 0 % Neutrophils # 7.4 (1.3-7.7) k/uL Lymphocytes # 2.7 (1.0-4.8) k/uL Monocytes # 0.7 (0-1.0) k/uL Eosinophils # 0.2 (0-0.7) k/uL Basophils # 0.1 (0-0.2) k/uL Sodium (137-145) mmol/L Potassium (3.5-5.1) mmol/L Chloride (98-107) mmol/L Carbon Dioxide (22-30) mmol/L Anion Gap mmol/L BUN (7-17) mg/dL Creatinine (0.52-1.04) mg/dL Est GFR (CKD-EPI)AfAm (>60 ml/min/1.73 sqM) Est GFR (CKD-EPI)NonAf (>60 ml/min/1.73 sqM) Glucose (74-99) mg/dL Calcium (8.4-10.2) mg/dL Total Bilirubin (0.2-1.3) mg/dL AST (14-36) U/L ALT (9-52) U/L Alkaline Phosphatase (38-126) U/L Total Protein (6.3-8.2) g/dL Albumin (3.5-5.0) g/dL Amylase (30-110) U/L Lipase (23-300) U/L Urine Color Urine Appearance (Clear) Urine pH (5.0-8.0) Ur Specific [place] (1.001-1.035) Urine Protein (Negative) Urine Glucose (UA) (Negative) Urine Ketones (Negative) Urine Blood (Negative) Urine Nitrite (Negative) Urine Bilirubin (Negative) Urine Urobilinogen (<2.0) mg/dL Ur Leukocyte Esterase (Negative) Urine RBC (0-5) /hpf Urine WBC (0-5) /hpf Urine WBC Clumps (None) /hpf Ur Squamous Epith Cells (0-4) /hpf Amorphous Sediment (None) /hpf Urine Bacteria (None) /hpf Hyaline Casts (0-2) /lpf Urine Mucus (None) /hpf Urine HCG, Qual (Not Detectd) Disposition Is patient prescribed a controlled substance at d/c from ED?: No Time of Disposition: 00:22 <Bairon Ha P - Last Filed: 06/08/18 00:50> <Mahsa Lyons P - Last Filed: 06/08/18 06:51> Clinical Impression: Urinary tract infection, Abdominal pain Disposition: HOME SELF-CARE Condition: Good Instructions: Urinary Tract Infection in Women (ED), Abdominal Pain (ED) Additional Instructions: Please take antibiotic as directed. Please drink fluids as tolerated. Please follow-up with surgeon in 1-2 days. Return to the emergency department if you have any worsening symptoms. Prescriptions: Cephalexin [Keflex] 500 mg PO Q6HR 10 Days cap Referrals: Ana Fox III, MD [Primary Care Provider] - 1-2 days Beni Ferrara MD [STAFF PHYSICIAN] - 1-2 days
[2018-06-08 01:38] VITALS: BP 118/72; PULSE 68; TEMP 97.8
== END 2018-06-08 01:36 | disposition home or self-care (01) ==
LOC: EC 21:30
DX: N39.0 Urinary tract infection, site not specified (principal); R10.13 Epigastric pain; N83.201 Unspecified ovarian cyst, right side; N83.202 Unspecified ovarian cyst, left side; Z79.3 Long term (current) use of hormonal contraceptives; Z88.8 Allergy status to other drugs, medicaments and biological substances; Z91.018 Allergy to other foods; Z91.048 Other nonmedicinal substance allergy status; Z98.84 Bariatric surgery status
CPT/HCPCS: 36415; 80053; 82150; 83690; 85025; 81001; 81025; 87086; 74177; 99284; 96374; 96361 ×2; J1885; Q9967

== ENCOUNTER → 2018-06-13 | Outpatient (CLI) | payer BC ==
[~2018-06-13] MED LIST changes: -DEXAMETHASONE SOD PHOSPHATE 10 MG/ML 1 ML VIAL IV ONE; -ENOXAPARIN 40 MG/0.4 ML SYRINGE SQ ONE; -MIDAZOLAM 2 MG/2 ML VIAL IV PRN; -ONDANSETRON 4 MG/2 ML VIAL IVP ONE; -SCOPOLAMINE 1.5MG/72HR PATCH TRANSDERM ONE; +SODIUM CHLORIDE 0.9% 2,000 ML IV SCH; +SODIUM CHLORIDE 0.9% 500 ML in EMPTY BAG 1 BAG IV PRN; -fentaNYL (PF) 50 MCG/ML 2 ML AMP IV PRN
[2018-06-13 09:36] VITALS: BP 137/91; PULSE 67; RESP 16; TEMP 98
== END | disposition home or self-care (01) ==
LOC: PROCWHC3 08:59
PROVIDERS: ATTEND Surgery
DX: E86.0 Dehydration (principal)
CPT/HCPCS: 96360; 96361

== ENCOUNTER 2018-06-16 13:52 | Emergency (ER) | payer BC, OTHER ==
[2018-06-16 14:05] VITALS: RESP 18; TEMP 98.5
[2018-06-16 14:33] LABS: Appearance,Urine Turbid (Clear); Bacteria,Urine Moderate /hpf; Bilirubin,Urine 2+ (Negative); Blood,Urine Large (Negative); Color,Urine Dark Brown; Glucose,Urine (UA) Trace (Negative); Ketones,Urine 4+ (Negative); Leukocyte Esterase,Urine Moderate (Negative); Mucus,Urine Many /hpf; Nitrite,Urine Negative (Negative); PH, Urine 6.5 (5.0-8.0); Protein,Urine 3+ (Negative); RBC,Urine >182 /hpf (0-5); Specific Gravity,Urine 1.029 (1.001-1.035); Squamous Epithelial Cell,Urine 33 /hpf (0-4); WBC,Urine 57 /hpf (0-5)
[2018-06-16] MEDS ORDERED: SODIUM CHLORIDE 0.9% 1,000 ML IV STA ×2 (15:39→17:06)
[2018-06-16 16:36] LABS: Basophils % (A) 0 %; Eosinophils # (A) 0.1 k/uL (0-0.7); Eosinophils % (A) 1 %; HCT 42.9 % (34.0-46.0); Lymphocytes # (A) 1.8 k/uL (1.0-4.8); Lymphocytes % (A) 26 %; MCH 28.1 pg (25.0-35.0); MCHC 32.7 g/dL (31.0-37.0); MCV 86.1 fL (80.0-100.0); Mean Platelet Volume 9.6; Monocytes # (A) 0.5 k/uL (0-1.0); Monocytes % (A) 7 %; Neutrophils # (A) 4.4 k/uL (1.3-7.7); Neutrophils % (A) 64 %; Platelet Count 170 k/uL (150-450); RBC 4.98 m/uL (3.80-5.40); RDW 14.2 % (11.5-15.5)
[2018-06-16 16:53] LABS: ALT 486 U/L (9-52); AST 275 U/L (14-36); Albumin 4.1 g/dL (3.5-5.0); Alkaline Phosphatase 76 U/L (38-126); Anion Gap 17 mmol/L; Blood Urea Nitrogen 5 mg/dL (7-17); Calcium 9.1 mg/dL (8.4-10.2); Carbon Dioxide 24 mmol/L (22-30); Chloride 100 mmol/L (98-107); Glucose 80 mg/dL (74-99); Potassium 3.4 mmol/L (3.5-5.1); Sodium 141 mmol/L (137-145); Total Bilirubin 1.2 mg/dL (0.2-1.3); Total Protein 7.3 g/dL (6.3-8.2)
[2018-06-16 16:54] LABS: Appearance,Urine Cloudy (Clear); Bacteria,Urine Rare /hpf; Bilirubin,Urine 1+ (Negative); Blood,Urine Small (Negative); Color,Urine Dark Yellow; Glucose,Urine (UA) Negative (Negative); Ketones,Urine 4+ (Negative); Leukocyte Esterase,Urine Negative (Negative); Mucus,Urine Many /hpf; Nitrite,Urine Negative (Negative); PH, Urine 6.5 (5.0-8.0); Protein,Urine 2+ (Negative); RBC,Urine 3 /hpf (0-5); Specific Gravity,Urine 1.024 (1.001-1.035); Squamous Epithelial Cell,Urine 1 /hpf (0-4); WBC,Urine 6 /hpf (0-5)
[2018-06-16 17:22] VITALS: BP 137/70; PULSE 59
--- NOTE | 2018-06-16 17:34 | ED ---
General Adult HPI - General Chief complaint: Abdominal Pain Stated complaint: post op abdominal pain Time Seen by Provider: 06/16/18 15:21 Source: patient, RN notes reviewed, old records reviewed Mode of arrival: ambulatory Limitations: no limitations - History of Present Illness Initial comments: Patient's a 28-year-old female status post gastric sleeve 3 weeks, presented to the emergency room today with a chief complaint of abdominal pain. Patient states she was seen here recently 1 week ago had a CT of abdomen. She states she was diagnosed with a urinary tract infections been on Keflex for 8 days. Patient states still experiencing some discomfort in sides of the abdomen. Patient States still some symptoms of dysuria. Patient denies any other complaints or symptoms. Patient denies any recent fever, chills, shortness of breath, chest pain, back pain, numbness or tingling, constipation or diarrhea, headaches or visual changes, or any other complaints. - Related Data Home Medications Medication Instructions Recorded Confirmed Norgestimate-Ethinyl Estradiol 1 tab PO HS 09/20/17 06/13/18 [Sprintec 28 Day Tablet] Acetaminophen Tab [Tylenol Tab] 650 mg PO Q6H PRN 10/24/17 06/13/18 Previous Rx's Medication Instructions Recorded Bisacodyl [Dulcolax] 5 mg PO DAILY PRN #10 tablet. 05/24/18 HYDROcodone/APAP 7.5-325MG [[place] 1 tab PO Q4H PRN 3 Days #18 tab 05/24/18 7.5-325] Omeprazole 40 mg PO DAILY #60 capsule. 05/24/18 Ondansetron Odt [Zofran Odt] 4 mg PO Q8HR PRN #9 tab 05/24/18 Simethicone 40 mg/0.6 ml Drops 40 mg PO PCHS PRN #30 ml 05/24/18 [Mylicon Drops] Cephalexin [Keflex] 500 mg PO Q6HR 10 Days cap 06/08/18 Nitrofurantoin Monohyd/M-Cryst 100 mg PO Q12HR #14 cap 06/16/18 [Macrobid] Allergies Allergy/AdvReac Type Severity Reaction Status Date / Time adhesive tape Allergy Rash/Hives Verified 06/16/18 14:05 bee venom protein (honey bee) Allergy Swelling Verified 06/16/18 14:05 vortioxetine Allergy Itching Verified 06/16/18 14:05 [From [employer]] Review of Systems ROS Statement: Those systems with pertinent positive or pertinent negative responses have been documented in the HPI. ROS Other: All systems not noted in ROS Statement are negative. Past Medical History Past Medical History: GERD/Reflux History of Any Multi-Drug Resistant Organisms: None Reported Past Surgical History: Adenoidectomy, Tonsillectomy Additional Past Surgical History / Comment(s): T & A at age ~9. , gastric sleeve Past Anesthesia/Blood Transfusion Reactions: No Reported Reaction Past Psychological History: Anxiety, Depression Smoking Status: Never smoker Past Alcohol Use History: Rare Past Drug Use History: None Reported - Past Family History Mother Family Medical History: AFIB, Hypertension Father Family Medical History: Hypertension Additional Family Medical History / Comment(s): known history is limited regarding father General Exam - General Exam Comments Initial Comments: General: The patient is awake and alert, in no distress, and does not appear acutely ill. Eye: Pupils are equal, round and reactive to light, extra-ocular movements are intact. No nystagmus. There is normal conjunctiva bilaterally. No signs of icterus. Ears, nose, mouth and throat: There are moist mucous membranes and no oral lesions. Neck: The neck is supple, there is no tenderness or JVD. Cardiovascular: There is a regular rate and rhythm. No murmur, rub or gallop is appreciated. Respiratory: Lungs are clear to auscultation, respirations are non-labored, breath sounds are equal. No wheezes, stridor, rales, or rhonchi. Gastrointestinal: Abdomen is soft on palpation. Patient has no specific tenderness on exam. There is no rebound, guarding or CVA tenderness. Musculoskeletal: Normal ROM, no tenderness. Strength 5/5. Sensation intact. Pulses equal bilaterally 2+. Neurological: A&O x 3. CN II-XII intact, There are no obvious motor or sensory deficits. Coordination appears grossly intact. Speech is normal. Skin: Skin is warm and dry and no rashes or lesions are noted. Psychiatric: Cooperative, appropriate mood & affect, normal judgment. Limitations: no limitations Course Vital Signs 06/16/18 06/16/18 14:01 17:21 Temperature 98.5 F 98.5 F Pulse Rate 67 59 L Respiratory 18 18 Rate Blood Pressure 137/88 137/70 O2 Sat by Pulse 99 99 Oximetry Medical Decision Making - Medical Decision Making Patient's initial urinalysis showed a contaminated sample. A straight cath was performed by nursing staff showing a much body cleaner specimen was some rare bacteria and 6 white cells. Culture will be added. Patient's currently on Keflex. Patient liver enzymes do show an elevation. Please that this may be due to the antibiotics as there is no previous history. We will start Keflex at this time start macrobid wait for culture and advised follow-up for repeat liver enzymes. - Lab Data Result diagrams: 06/16/18 16:25 06/16/18 16:25 Lab Results 06/16/18 06/16/18 06/16/18 Range/Units 14:19 16:25 16:25 WBC 7.0 (3.8-10.6) k/uL RBC 4.98 (3.80-5.40) m/uL Hgb 14.0 (11.4-16.0) gm/dL Hct 42.9 (34.0-46.0) % MCV 86.1 (80.0-100.0) fL MCH 28.1 (25.0-35.0) pg MCHC 32.7 (31.0-37.0) g/dL RDW 14.2 (11.5-15.5) % Plt Count 170 (150-450) k/uL Neutrophils % 64 % Lymphocytes % 26 % Monocytes % 7 % Eosinophils % 1 % Basophils % 0 % Neutrophils # 4.4 (1.3-7.7) k/uL Lymphocytes # 1.8 (1.0-4.8) k/uL Monocytes # 0.5 (0-1.0) k/uL Eosinophils # 0.1 (0-0.7) k/uL Basophils # 0.0 (0-0.2) k/uL Sodium 141 (137-145) mmol/L Potassium 3.4 L (3.5-5.1) mmol/L Chloride 100 (98-107) mmol/L Carbon Dioxide 24 (22-30) mmol/L Anion Gap 17 mmol/L BUN 5 L (7-17) mg/dL Creatinine 0.60 (0.52-1.04) mg/dL Est GFR (CKD-EPI)AfAm >90 (>60 ml/min/1.73 sqM) Est GFR (CKD-EPI)NonAf >90 (>60 ml/min/1.73 sqM) Glucose 80 (74-99) mg/dL Plasma Lactic Acid [place] (0.7-2.0) mmol/L Calcium 9.1 (8.4-10.2) mg/dL Total Bilirubin 1.2 (0.2-1.3) mg/dL AST 275 H (14-36) U/L ALT 486 H (9-52) U/L Alkaline Phosphatase 76 (38-126) U/L Total Protein 7.3 (6.3-8.2) g/dL Albumin 4.1 (3.5-5.0) g/dL Urine Color Dark Brown Urine Appearance Turbid H (Clear) Urine pH 6.5 (5.0-8.0) Ur Specific [place] 1.029 (1.001-1.035) Urine Protein 3+ H (Negative) Urine Glucose (UA) Trace H (Negative) Urine Ketones 4+ H (Negative) Urine Blood Large H (Negative) Urine Nitrite Negative (Negative) Urine Bilirubin 2+ H (Negative) Urine Urobilinogen 12.0 (<2.0) mg/dL Ur Leukocyte Esterase Moderate H (Negative) Urine RBC >182 H (0-5) /hpf Urine WBC 57 H (0-5) /hpf Ur Squamous Epith Cells 33 H (0-4) /hpf Urine Bacteria Moderate H (None) /hpf Urine Mucus Many H (None) /hpf 06/16/18 06/16/18 Range/Units 16:25 16:25 WBC (3.8-10.6) k/uL RBC (3.80-5.40) m/uL Hgb (11.4-16.0) gm/dL Hct (34.0-46.0) % MCV (80.0-100.0) fL MCH (25.0-35.0) pg MCHC (31.0-37.0) g/dL RDW (11.5-15.5) % Plt Count (150-450) k/uL Neutrophils % % Lymphocytes % % Monocytes % % Eosinophils % % Basophils % % Neutrophils # (1.3-7.7) k/uL Lymphocytes # (1.0-4.8) k/uL Monocytes # (0-1.0) k/uL Eosinophils # (0-0.7) k/uL Basophils # (0-0.2) k/uL Sodium (137-145) mmol/L Potassium (3.5-5.1) mmol/L Chloride (98-107) mmol/L Carbon Dioxide (22-30) mmol/L Anion Gap mmol/L BUN (7-17) mg/dL Creatinine (0.52-1.04) mg/dL Est GFR (CKD-EPI)AfAm (>60 ml/min/1.73 sqM) Est GFR (CKD-EPI)NonAf (>60 ml/min/1.73 sqM) Glucose (74-99) mg/dL Plasma Lactic Acid [place] 0.8 (0.7-2.0) mmol/L Calcium (8.4-10.2) mg/dL Total Bilirubin (0.2-1.3) mg/dL AST (14-36) U/L ALT (9-52) U/L Alkaline Phosphatase (38-126) U/L Total Protein (6.3-8.2) g/dL Albumin (3.5-5.0) g/dL Urine Color Dark Yellow Urine Appearance Cloudy H (Clear) Urine pH 6.5 (5.0-8.0) Ur Specific [place] 1.024 (1.001-1.035) Urine Protein 2+ H (Negative) Urine Glucose (UA) Negative (Negative) Urine Ketones 4+ H (Negative) Urine Blood Small H (Negative) Urine Nitrite Negative (Negative) Urine Bilirubin 1+ H (Negative) Urine Urobilinogen 8.0 (<2.0) mg/dL Ur Leukocyte Esterase Negative (Negative) Urine RBC 3 (0-5) /hpf Urine WBC 6 H (0-5) /hpf Ur Squamous Epith Cells 1 (0-4) /hpf Urine Bacteria Rare H (None) /hpf Urine Mucus Many H (None) /hpf Disposition Clinical Impression: UTI (urinary tract infection), Elevated liver enzymes Disposition: HOME SELF-CARE Condition: Good Instructions: Urinary Tract Infection in Women (ED) Additional Instructions: Please have repeat liver enzymes obtained. Please use antibiotic as prescribed and follow-up over the next 2 days. Please return if symptoms increase or worsen. Prescriptions: Nitrofurantoin Monohyd/M-Cryst [Macrobid] 100 mg PO Q12HR #14 cap Is patient prescribed a controlled substance at d/c from ED?: No Referrals: Ana Fox III, MD [Primary Care Provider] - 1-2 days Time of Disposition: 17:32
== END 2018-06-16 18:04 | disposition home or self-care (01) ==
LOC: EC 13:52
DX: N39.0 Urinary tract infection, site not specified (principal); R74.8 Abnormal levels of other serum enzymes; Z88.8 Allergy status to other drugs, medicaments and biological substances; Z91.018 Allergy to other foods; Z91.048 Other nonmedicinal substance allergy status; Z79.3 Long term (current) use of hormonal contraceptives; Z98.84 Bariatric surgery status
CPT/HCPCS: 36415; 80053; 81001; 83605; 85025; 87086; 96360; 96361; 99284

== ENCOUNTER 2018-06-29 06:26 | Inpatient (IN) | payer OTHER ==
[2018-06-29] MEDS: SODIUM CHLORIDE 0.9% 500 ML IV SCH ×2 (07:04→07:46)
--- NOTE | 2018-06-29 07:05 | ED ---
Abdominal Pain HPI - General Source: patient Mode of arrival: ambulatory Limitations: no limitations <Mahsa Lyons - Last Filed: 06/29/18 07:05> <Vega Suh - Last Filed: 06/29/18 11:03> - General Source: RN notes reviewed, old records reviewed <Sri Mcrae - Last Filed: 06/29/18 11:24> - General Chief Complaint: Abdominal Pain Stated Complaint: UTI - History of Present Illness Initial Comments: Patient is a 28-year-old female presents emergency department today with chief complaint of UTI symptoms. She reports she's been on antibiotics for 2 weeks and still continues to have pain with urination and polyuria. She reports she has had a gastric sleeve surgery on May 23. She states that over the past 2 days she's been having continuous nausea and vomiting. She does report she has some epigastric abdominal pain associated with her vomiting. Patient reports that she's had no recent fever but does feel chilled. She states that she vomits she does have some episodes of chest pain at that time. She denies any specific shortness of breath. Her last antibiotic that she was on is Bactrim. She was sent in by her PCP for further evaluation including lab work and computed tomography scan. (Sri Mcrae) - Related Data Home Medications Medication Instructions Recorded Confirmed Norgestimate-Ethinyl Estradiol 1 tab PO HS 09/20/17 06/13/18 [Sprintec 28 Day Tablet] Acetaminophen Tab [Tylenol Tab] 650 mg PO Q6H PRN 10/24/17 06/13/18 Previous Rx's Medication Instructions Recorded Bisacodyl [Dulcolax] 5 mg PO DAILY PRN #10 tablet. 05/24/18 HYDROcodone/APAP 7.5-325MG [Tate 1 tab PO Q4H PRN 3 Days #18 tab 05/24/18 7.5-325] Omeprazole 40 mg PO DAILY #60 capsule. 05/24/18 Ondansetron Odt [Zofran Odt] 4 mg PO Q8HR PRN #9 tab 05/24/18 Simethicone 40 mg/0.6 ml Drops 40 mg PO PCHS PRN #30 ml 05/24/18 [Mylicon Drops] Cephalexin [Keflex] 500 mg PO Q6HR 10 Days cap 06/08/18 Nitrofurantoin Monohyd/M-Cryst 100 mg PO Q12HR #14 cap 06/16/18 [Macrobid] Allergies Allergy/AdvReac Type Severity Reaction Status Date / Time adhesive tape Allergy Rash/Hives Verified 06/29/18 06:34 bee venom protein (honey bee) Allergy Swelling Verified 06/29/18 06:34 vortioxetine Allergy Itching Verified 06/29/18 06:34 [From [employer]] Review of Systems ROS Other: All systems not noted in ROS Statement are negative. <Mahsa Lyons - Last Filed: 06/29/18 07:05> ROS Other: All systems not noted in ROS Statement are negative. <Vega Suh - Last Filed: 06/29/18 11:03> ROS Other: All systems not noted in ROS Statement are negative. <Sri Mcrae - Last Filed: 06/29/18 11:24> ROS Statement: Those systems with pertinent positive or pertinent negative responses have been documented in the HPI. Past Medical History Past Medical History: GERD/Reflux History of Any Multi-Drug Resistant Organisms: None Reported Past Surgical History: Adenoidectomy, Tonsillectomy Additional Past Surgical History / Comment(s): T & A at age ~9. gastric sleeve Past Anesthesia/Blood Transfusion Reactions: No Reported Reaction Past Psychological History: Anxiety, Depression Smoking Status: Never smoker Past Alcohol Use History: Rare Past Drug Use History: None Reported - Past Family History Mother Family Medical History: AFIB, Hypertension Father Family Medical History: Hypertension Additional Family Medical History / Comment(s): known history is limited regarding father <Mahsa Lyons - Last Filed: 06/29/18 07:05> General Exam Limitations: no limitations <Mahsa Lyons - Last Filed: 06/29/18 07:05> <Vega Suh - Last Filed: 06/29/18 11:03> General appearance: alert, in no apparent distress Head exam: Present: atraumatic, normocephalic, normal inspection Eye exam: Present: normal appearance, PERRL, EOMI. Absent: scleral icterus, conjunctival injection, periorbital swelling ENT exam: Present: normal exam, mucous membranes dry (mucous membranes are dry) , mucous membranes moist. Absent: normal oropharynx Neck exam: Present: normal inspection. Absent: tenderness, meningismus, lymphadenopathy Respiratory exam: Present: normal lung sounds bilaterally. Absent: respiratory distress, wheezes, rales, rhonchi, stridor Cardiovascular Exam: Present: regular rate, normal rhythm, normal heart sounds. Absent: systolic murmur, diastolic murmur, rubs, gallop, clicks GI/Abdominal exam: Present: soft, tenderness (diffuse tenderness. Worsen the right upper quadrant and left upper quadrant.), normal bowel sounds, other (well -appearing incision sites over the abdomen from recent gastric sleeve procedure. ). Absent: distended, guarding, rebound, rigid Extremities exam: Present: normal inspection Back exam: Present: normal inspection, CVA tenderness (R) Neurological exam: Present: alert, oriented X3, CN II-XII intact Psychiatric exam: Present: normal affect, normal mood Skin exam: Present: warm, dry, intact, normal color. Absent: rash <Sri Mcrae - Last Filed: 06/29/18 11:24> - General Exam Comments Initial Comments: this is a 28-year-old female. Alert and oriented. No significant distress. ( Sri Mcrae) Course <Mahsa Lyons - Last Filed: 06/29/18 07:05> <Vega Suh - Last Filed: 06/29/18 11:03> <Sri Mcrae - Last Filed: 06/29/18 11:24> Vital Signs 06/29/18 06/29/18 06:30 11:17 Temperature 98 F 97.9 F Pulse Rate 83 72 Respiratory 16 18 Rate Blood Pressure 139/98 139/69 O2 Sat by Pulse 95 100 Oximetry - Reevaluation(s) Reevaluation #1: 06/29/18 10:09 Patient was reevaluated by myself, Dr. Suh. Patient resting comfortably in bed. Abdomen soft with mild to moderate tenderness in the epigastric region. Patient updated. Case was discussed with Dr. Berumen, covering for Dr. Ferrara. She does recommend checking ultrasound of the gallbladder. 06/29/18 11:03 Patient again reevaluated and updated. Case again discussed with Dr. Berumen , who will admit for Dr. Ferrara. She does agree with antibiotics. 06/29/18 11:04 Patient does not meet sepsis criteria. (Vega Suh) Medical Decision Making <Mahsa Lyons - Last Filed: 06/29/18 07:05> - Lab Data Result diagrams: 06/29/18 06:45 06/29/18 06:45 <Vega Suh - Last Filed: 06/29/18 11:03> - Lab Data Result diagrams: 06/29/18 06:45 06/29/18 06:45 - Radiology Data Radiology results: report reviewed <Sri Mcrae - Last Filed: 06/29/18 11:24> - Medical Decision Making Patient is a 28-year-old female presents emergency department today with diffuse abdominal pain multiple episodes of vomiting. She has history of gastric sleeve surgery beginning of May by Dr. Ferrara This time Patient was given fluids. Patient's lab work show mildly elevated liver enzymes. She has some right upper quadrant tenderness. Patient CT scan was negative for any acute process. Patient urinalysis did have positive bilirubin. As well as ketones. Second bolus was completed. Ultrasound shows evidence of gallbladder sludge. Dr. Suh discussed case with Dr. Berumen. [place] the Patient and start her on IV antibiotic. (Sri Mcrae) - Lab Data Lab Results 06/29/18 06/29/18 06/29/18 Range/Units 06:45 06:45 06:45 WBC 8.5 (3.8-10.6) k/uL RBC 5.44 H (3.80-5.40) m/uL Hgb 15.7 (11.4-16.0) gm/dL Hct 46.2 H (34.0-46.0) % MCV 84.9 (80.0-100.0) fL MCH 28.9 (25.0-35.0) pg MCHC 34.0 (31.0-37.0) g/dL RDW 14.4 (11.5-15.5) % Plt Count 225 (150-450) k/uL Neutrophils % 66 % Lymphocytes % 21 % Monocytes % 9 % Eosinophils % 1 % Basophils % 1 % Neutrophils # 5.6 (1.3-7.7) k/uL Lymphocytes # 1.8 (1.0-4.8) k/uL Monocytes # 0.8 (0-1.0) k/uL Eosinophils # 0.1 (0-0.7) k/uL Basophils # 0.1 (0-0.2) k/uL PT (9.0-12.0) sec INR (<1.2) APTT (22.0-30.0) sec Sodium 142 (137-145) mmol/L Potassium 3.5 (3.5-5.1) mmol/L Chloride 99 (98-107) mmol/L Carbon Dioxide 21 L (22-30) mmol/L Anion Gap 22 mmol/L BUN 9 (7-17) mg/dL Creatinine 0.80 (0.52-1.04) mg/dL Est GFR (CKD-EPI)AfAm >90 (>60 ml/min/1.73 sqM) Est GFR (CKD-EPI)NonAf >90 (>60 ml/min/1.73 sqM) Glucose 114 H (74-99) mg/dL Plasma Lactic Acid [place] 1.4 (0.7-2.0) mmol/L Calcium 10.0 (8.4-10.2) mg/dL Total Bilirubin 2.1 H (0.2-1.3) mg/dL AST 87 H (14-36) U/L ALT 161 H (9-52) U/L Alkaline Phosphatase 88 (38-126) U/L Troponin I (0.000-0.034) ng/mL Total Protein 8.3 H (6.3-8.2) g/dL Albumin 4.8 (3.5-5.0) g/dL Urine Color Urine Appearance (Clear) Urine pH (5.0-8.0) Ur Specific [place] (1.001-1.035) Urine Protein (Negative) Urine Glucose (UA) (Negative) Urine Ketones (Negative) Urine Blood (Negative) Urine Nitrite (Negative) Urine Bilirubin (Negative) Urine Urobilinogen (<2.0) mg/dL Ur Leukocyte Esterase (Negative) Urine RBC (0-5) /hpf Urine WBC (0-5) /hpf Ur Squamous Epith Cells (0-4) /hpf Urine Mucus (None) /hpf 06/29/18 06/29/18 06/29/18 Range/Units 06:45 06:45 09:09 WBC (3.8-10.6) k/uL RBC (3.80-5.40) m/uL Hgb (11.4-16.0) gm/dL Hct (34.0-46.0) % MCV (80.0-100.0) fL MCH (25.0-35.0) pg MCHC (31.0-37.0) g/dL RDW (11.5-15.5) % Plt Count (150-450) k/uL Neutrophils % % Lymphocytes % % Monocytes % % Eosinophils % % Basophils % % Neutrophils # (1.3-7.7) k/uL Lymphocytes # (1.0-4.8) k/uL Monocytes # (0-1.0) k/uL Eosinophils # (0-0.7) k/uL Basophils # (0-0.2) k/uL PT 11.0 (9.0-12.0) sec INR 1.1 (<1.2) APTT 21.6 L (22.0-30.0) sec Sodium (137-145) mmol/L Potassium (3.5-5.1) mmol/L Chloride (98-107) mmol/L Carbon Dioxide (22-30) mmol/L Anion Gap mmol/L BUN (7-17) mg/dL Creatinine (0.52-1.04) mg/dL Est GFR (CKD-EPI)AfAm (>60 ml/min/1.73 sqM) Est GFR (CKD-EPI)NonAf (>60 ml/min/1.73 sqM) Glucose (74-99) mg/dL Plasma Lactic Acid [place] (0.7-2.0) mmol/L Calcium (8.4-10.2) mg/dL Total Bilirubin (0.2-1.3) mg/dL AST (14-36) U/L ALT (9-52) U/L Alkaline Phosphatase (38-126) U/L Troponin I <0.012 (0.000-0.034) ng/mL Total Protein (6.3-8.2) g/dL Albumin (3.5-5.0) g/dL Urine Color Yellow Urine Appearance Clear (Clear) Urine pH 6.5 (5.0-8.0) Ur Specific [place] >1.050 H (1.001-1.035) Urine Protein 1+ H (Negative) Urine Glucose (UA) Negative (Negative) Urine Ketones 4+ H (Negative) Urine Blood Negative (Negative) Urine Nitrite Negative (Negative) Urine Bilirubin 2+ H (Negative) Urine Urobilinogen 4.0 (<2.0) mg/dL Ur Leukocyte Esterase Negative (Negative) Urine RBC 7 H (0-5) /hpf Urine WBC 5 (0-5) /hpf Ur Squamous Epith Cells 11 H (0-4) /hpf Urine Mucus Few H (None) /hpf 06/29/18 07:16 EKG performed at 701 shows normal sinus rhythm ST and T-wave abnormality considering inferior ischemia. Inverted T waves in leads 3 and aVF. Ventricular rate of 83 bpm. MO interval 120 ms. QRS duration 84 ms. QT QTc is 344/404 ms. (Sri Mcrae) - Radiology Data CT is negative for any acute inflammatory or melena. Normal. Follicular changes in both ovaries. Sludge within the gallbladder noted. (Sri Mcrae) Disposition <Mahsa Lyons - Last Filed: 06/29/18 07:05> Is patient prescribed a controlled substance at d/c from ED?: No Decision Time: 11:04 <Vega Suh - Last Filed: 06/29/18 11:03> <Sri Mcrae - Last Filed: 06/29/18 11:24> Clinical Impression: Cholecystitis Disposition: ADMITTED IP TO THIS HOSP
[2018-06-29] MEDS ORDERED: MORPHINE SULFATE 4 MG/ML SYRINGE IVP STA (07:10)
[2018-06-29] MEDS ORDERED: ONDANSETRON 4 MG/2 ML VIAL IVP STA (07:10)
[2018-06-29 07:22] LABS: Basophils # (A) 0.1 k/uL (0-0.2); Basophils % (A) 1 %; Eosinophils # (A) 0.1 k/uL (0-0.7); Eosinophils % (A) 1 %; HCT 46.2 % (34.0-46.0); HGB 15.7 gm/dL (11.4-16.0); Lymphocytes # (A) 1.8 k/uL (1.0-4.8); Lymphocytes % (A) 21 %; MCH 28.9 pg (25.0-35.0); MCV 84.9 fL (80.0-100.0); Monocytes # (A) 0.8 k/uL (0-1.0); Monocytes % (A) 9 %; Neutrophils # (A) 5.6 k/uL (1.3-7.7); Neutrophils % (A) 66 %; Platelet Count 225 k/uL (150-450); RBC 5.44 m/uL (3.80-5.40); RDW 14.4 % (11.5-15.5); WBC 8.5 k/uL (3.8-10.6)
[2018-06-29 07:32] LABS: ALT 161 U/L (9-52); AST 87 U/L (14-36); Albumin 4.8 g/dL (3.5-5.0); Alkaline Phosphatase 88 U/L (38-126); Anion Gap 22 mmol/L; Blood Urea Nitrogen 9 mg/dL (7-17); Carbon Dioxide 21 mmol/L (22-30); Chloride 99 mmol/L (98-107); Glucose 114 mg/dL (74-99); Potassium 3.5 mmol/L (3.5-5.1); Sodium 142 mmol/L (137-145); Total Bilirubin 2.1 mg/dL (0.2-1.3); Total Protein 8.3 g/dL (6.3-8.2)
[2018-06-29 07:37] LABS: INR 1.1 (<1.2); Partial Thromboplastin Time 21.6 sec (22.0-30.0)
[2018-06-29] MEDS ORDERED: diphenhydrAMINE 50 MG/ML 1 ML VIAL IVP STA (07:51)
[2018-06-29] MEDS ORDERED: METOCLOPRAMIDE 5 MG/ML 2 ML VIAL IVP STA (07:51)
--- NOTE | 2018-06-29 08:07 | CT ---
EXAMINATION TYPE: CT abdomen pelvis w con DATE OF EXAM: 06/29/2018 REFERENCE: NONE HISTORY: Pain HISTORY: UTI, nausea and vomit ting for 2 and a half weeks REFERENCE: Previous study dated 06/07/2018. CT DLP: 3497.7 mGy Automated exposure control for dose reduction was used. TECHNIQUE: Helical acquisition through the abdomen and pelvis was obtained following the oral ingesti on of without Oral Contrast and following intravenous administration of 100 mL of Isovue 300. The [place] a was reformatted in axial, coronal and sagittal projections. FINDINGS: Visualized portions of the lungs are clear. There is no pleural or pericardial fluid. The heart is not enlarged. Within the abdomen, the liver, spleen and gallbladder are normal. Both kidneys demonstrate function and appear morphologically normal The pancreas is unremarkable. There is no significant retroperitoneal, iliac or inguinal adenopathy. The bladder is not distended. There is follicular change in both ovaries. The largest cyst on the left measures 2 cm. The uterus is normal in size and anteverted. There is no significant diverticular change and there is no radiographic evidence of diverticulitis. The appendix is normal. Small bowel loops are normal. There is no free fluid and no free air. No osseous lesion is seen. IMPRESSION: 1. NO ACUTE INFLAMMATORY ABNORMALITY. 2. NORMAL APPENDIX. 3. FOLLICULAR CHANGE IN BOTH OVARIES.
[2018-06-29 09:19] LABS: Appearance,Urine Clear (Clear); Bilirubin,Urine 2+ (Negative); Blood,Urine Negative (Negative); Color,Urine Yellow; Glucose,Urine (UA) Negative (Negative); Ketones,Urine 4+ (Negative); Leukocyte Esterase,Urine Negative (Negative); Mucus,Urine Few /hpf; Nitrite,Urine Negative (Negative); PH, Urine 6.5 (5.0-8.0); Protein,Urine 1+ (Negative); RBC,Urine 7 /hpf (0-5); Squamous Epithelial Cell,Urine 11 /hpf (0-4); WBC,Urine 5 /hpf (0-5)
[2018-06-29 09:21] LABS: Specific Gravity,Urine >1.050 (1.001-1.035)
[2018-06-29] MEDS ORDERED: SODIUM CHLORIDE 0.9% 1,000 ML IV ONE (09:36)
--- NOTE | 2018-06-29 10:38 | US ---
EXAMINATION TYPE: US gallbladder DATE OF EXAM: 06/29/2018 COMPARISON: Previous study dated 06/12/2007. CLINICAL HISTORY: Pain. Gastric sleeve 05/23/2018. N/V. EXAM MEASUREMENTS: Liver Length: 15.3 cm Gallbladder Wall: 0.3 cm CBD: 0.3 cm CHD: 0.2 cm Right Kidney: 9.9 x 5.9 x 4.9 cm Pancreas: Head and tail obscured by overlying bowel gas Liver: wnl Gallbladder: sludge seen Evidence for sonographic Alvarez's sign: neg CBD: wnl CHD: wnl Right Kidney: wnl The pancreas is largely obscured. Liver is normal in size without biliary dilatation. There is sludge within the gallbladder. The gallbladder wall measures 3 mm. The distal common hepatic duct measures 2 mm. There is no sonographic Alvarez's sign. The right kidney is normal. IMPRESSION: SLUDGE WITHIN THE GALLBLADDER.
[2018-06-29] MEDS ORDERED: NALOXONE 0.4 MG/ML 1 ML VIAL IV PRN (11:04)
[2018-06-29] MEDS ORDERED: HYDROmorphone 1 MG/ML 1 ML SYRINGE IVP PRN (11:04)
[2018-06-29] MEDS ORDERED: PIPERACILLIN-TAZOBACTAM 3.375 GM in DEXTROSE/WATER 1 50ML.BAG IVPB STA (11:07)
[2018-06-29] MEDS ORDERED: PANTOPRAZOLE 40 MG/10 ML VIAL IV SCH (11:15)
[2018-06-29] MEDS: ONDANSETRON 4 MG/2 ML VIAL IVP PRN ×2 (11:47→20:32)
[2018-06-29] MEDS: SODIUM CHLORIDE 0.9% 1,000 ML IV SCH ×2 (11:48→16:16)
[2018-06-29] MEDS: HYDROmorphone 1 MG/ML 1 ML SYRINGE IVP PRN (16:14)
[2018-06-29] MEDS: HEPARIN SODIUM,PORCINE 5,000 UNIT/ML 1 ML VIAL SQ SCH ×2 (16:14→23:50)
--- NOTE | 2018-06-29 17:19 | P.GSHP ---
History of Present Illness H&P Date: 06/29/18 CHIEF COMPLAINT: Right upper quadrant abdominal pain and cholecystitis HISTORY OF PRESENT ILLNESS: The patient is a 28-year-old female who presents with history of epigastric including right upper quadrant abdominal pain. She underwent diagnostic studies for her gallbladder. Separately her clinical picture was consistent with cholecystitis. She reports intractable nausea and vomiting for 2 weeks. Her surgery is over 30 days ago from sleeve gastrectomy. She reports increased gastroesophageal reflux disease as well as burning along the chest. She has had poor urine output as well. She reports increasing pain along the epigastrium and bilateral abdomen with ultrasound consistent with gallbladder such and gallbladder wall thickening. Liver enzymes are also elevated with elevated total bilirubin. PAST MEDICAL HISTORY: Please see list PAST SURGICAL HISTORY: Please see list MEDICATIONS: Please see list ALLERGIES: Please see list SOCIAL HISTORY: No illicit drug use or recent tobacco use FAMILY HISTORY: Pertinent for gallbladder disease REVIEW OF ORGAN SYSTEMS: CONSTITUTIONAL: No reports of fevers or chills. HEENT: Denies any troubles with the vision or hearing. ENDOCRINE: No reports of hypothyroidism. No diabetes. RESPIRATORY: No recent pneumonias. CARDIOVASCULAR: Denies chest pain or palpitations GI: No blood in stools. Has gastroesophageal reflux disease MUSCULOSKELETAL: Has occasional joint pain including back pain. NEURO: No seizure disorders or headaches. No recent stroke. PSYCH: No depression or suicidal ideation. GENITOURINARY: No active blood in urine. No urinary hesitancy. HEMATOLOGIC: No personal or family history of DVTs or pulmonary emboli. SKIN: No skin cancer. PHYSICAL EXAM: GENERAL: Well-developed pleasant in mild distress. HEENT: No scleral icterus. Extraocular movements grossly intact. Moist buccal mucosa. NECK: Supple without lymphadenopathy. CHEST: Unlabored respirations. Equal bilateral excursions. CARDIOVASCULAR: Regular rate regular rhythm rhythm. Distal 2+ pulses. ABDOMEN: Soft, mildly distended. Tender along the epigastrium and right upper quadrant. MUSCULOSKELETAL: No clubbing, cyanosis, or edema. NEURO: Cranial nerves II to XII within normal limits. No focal or lateralizing signs. PSYCH: Alert and oriented to person, place and time. SKIN: Well-perfused good skin turgor. LABS: Reviewed demonstrating new elevated liver enzymes and total bilirubin and picture of gallbladder stones ASSESSMENT: 1. Epigastric and right upper quadrant abdominal pain 2. Symptomatic gallstones. PLAN: 1. Recommend IV fluid hydration for intractable nausea and vomiting 2. Assessment for cholecystectomy per her operating surgeon 3. DVT prophylaxis 4. Antibiotic prophylaxis Past Medical History Past Medical History: GERD/Reflux History of Any Multi-Drug Resistant Organisms: None Reported Past Surgical History: Adenoidectomy, Tonsillectomy Additional Past Surgical History / Comment(s): T & A at age ~9. gastric sleeve Past Anesthesia/Blood Transfusion Reactions: No Reported Reaction Past Psychological History: Anxiety, Depression Smoking Status: Never smoker Past Alcohol Use History: Rare Past Drug Use History: None Reported - Past Family History Mother Family Medical History: AFIB, Hypertension Father Family Medical History: Hypertension Additional Family Medical History / Comment(s): known history is limited regarding father Medications and Allergies Home Medications Medication Instructions Recorded Confirmed Type Norgestimate-Ethinyl Estradiol 1 tab PO HS 09/20/17 06/29/18 History [Sprintec 28 Day Tablet] Omeprazole 40 mg PO DAILY #60 capsule. 05/24/18 06/29/18 Rx Simethicone 40 mg/0.6 ml Drops 40 mg PO PCHS PRN #30 ml 05/24/18 06/29/18 Rx [Mylicon Drops] Acetaminophen Tab [Tylenol Tab] 500 mg PO Q6HR PRN 06/29/18 06/29/18 History Ondansetron HCl [Zofran] 8 mg PO Q8H PRN 06/29/18 06/29/18 History Allergies Allergy/AdvReac Type Severity Reaction Status Date / Time adhesive tape Allergy Rash/Hives Verified 06/29/18 11:29 bee venom protein (honey bee) Allergy Swelling Verified 06/29/18 11:29 vortioxetine Allergy Itching Verified 06/29/18 11:29 [From [employer]] Surgical - Exam Vital Signs Temp Pulse Resp BP Pulse Ox 98 F 83 16 139/98 95 06/29/18 06:30 06/29/18 06:30 06/29/18 06:30 06/29/18 06:30 06/29/18 06:30 Results - Labs 06/29/18 06:45 06/29/18 06:45 Abnormal Lab Results - Last 24 Hours (Table) 06/29/18 06/29/18 06/29/18 Range/Units 06:45 06:45 06:45 RBC 5.44 H (3.80-5.40) m/uL Hct 46.2 H (34.0-46.0) % APTT 21.6 L (22.0-30.0) sec Carbon Dioxide 21 L (22-30) mmol/L Glucose 114 H (74-99) mg/dL Total Bilirubin 2.1 H (0.2-1.3) mg/dL AST 87 H (14-36) U/L ALT 161 H (9-52) U/L Total Protein 8.3 H (6.3-8.2) g/dL Ur Specific [place] (1.001-1.035) Urine Protein (Negative) Urine Ketones (Negative) Urine Bilirubin (Negative) Urine RBC (0-5) /hpf Ur Squamous Epith Cells (0-4) /hpf Urine Mucus (None) /hpf 06/29/18 Range/Units 09:09 RBC (3.80-5.40) m/uL Hct (34.0-46.0) % APTT (22.0-30.0) sec Carbon Dioxide (22-30) mmol/L Glucose (74-99) mg/dL Total Bilirubin (0.2-1.3) mg/dL AST (14-36) U/L ALT (9-52) U/L Total Protein (6.3-8.2) g/dL Ur Specific [place] >1.050 H (1.001-1.035) Urine Protein 1+ H (Negative) Urine Ketones 4+ H (Negative) Urine Bilirubin 2+ H (Negative) Urine RBC 7 H (0-5) /hpf Ur Squamous Epith Cells 11 H (0-4) /hpf Urine Mucus Few H (None) /hpf Microbiology - Last 24 Hours (Table) 06/29/18 09:09 Urine Culture - Preliminary Urine,Clean Catch Diabetes panel 06/29/18 Range/Units 06:45 Sodium 142 (137-145) mmol/L Potassium 3.5 (3.5-5.1) mmol/L Chloride 99 (98-107) mmol/L Carbon Dioxide 21 L (22-30) mmol/L BUN 9 (7-17) mg/dL Creatinine 0.80 (0.52-1.04) mg/dL Glucose 114 H (74-99) mg/dL Calcium 10.0 (8.4-10.2) mg/dL AST 87 H (14-36) U/L ALT 161 H (9-52) U/L Alkaline Phosphatase 88 (38-126) U/L Total Protein 8.3 H (6.3-8.2) g/dL Albumin 4.8 (3.5-5.0) g/dL Calcium panel 06/29/18 Range/Units 06:45 Calcium 10.0 (8.4-10.2) mg/dL Albumin 4.8 (3.5-5.0) g/dL Pituitary panel 06/29/18 Range/Units 06:45 Sodium 142 (137-145) mmol/L Potassium 3.5 (3.5-5.1) mmol/L Chloride 99 (98-107) mmol/L Carbon Dioxide 21 L (22-30) mmol/L BUN 9 (7-17) mg/dL Creatinine 0.80 (0.52-1.04) mg/dL Glucose 114 H (74-99) mg/dL Calcium 10.0 (8.4-10.2) mg/dL Adrenal panel 06/29/18 Range/Units 06:45 Sodium 142 (137-145) mmol/L Potassium 3.5 (3.5-5.1) mmol/L Chloride 99 (98-107) mmol/L Carbon Dioxide 21 L (22-30) mmol/L BUN 9 (7-17) mg/dL Creatinine 0.80 (0.52-1.04) mg/dL Glucose 114 H (74-99) mg/dL Calcium 10.0 (8.4-10.2) mg/dL Total Bilirubin 2.1 H (0.2-1.3) mg/dL AST 87 H (14-36) U/L ALT 161 H (9-52) U/L Alkaline Phosphatase 88 (38-126) U/L Total Protein 8.3 H (6.3-8.2) g/dL Albumin 4.8 (3.5-5.0) g/dL - Imaging US - abdomen: report reviewed, image reviewed (Thickened gallbladder wall with moderate gallbladder sludge) Assessment and Plan (1) S/P laparoscopic sleeve gastrectomy Current Visit: Yes Status: Acute Code(s): Z98.84 - BARIATRIC SURGERY STATUS SNOMED Code(s): 406098413 (2) BMI 45.0-49.9, adult Current Visit: Yes Status: Acute Code(s): Z68.42 - BODY MASS INDEX (BMI) 45.0-49.9, ADULT SNOMED Code(s): 038435514 (3) Cholecystitis Current Visit: Yes Status: Acute Code(s): K81.9 - CHOLECYSTITIS, UNSPECIFIED SNOMED Code(s): 09482321 (4) Abdominal pain Current Visit: No Status: Acute Code(s): R10.9 - UNSPECIFIED ABDOMINAL PAIN SNOMED Code(s): 15929956 (5) Elevated liver enzymes Current Visit: No Status: Acute Code(s): R74.8 - ABNORMAL LEVELS OF OTHER SERUM ENZYMES SNOMED Code(s): 568907403 (6) Morbid obesity Current Visit: No Status: Acute Code(s): E66.01 - MORBID (SEVERE) OBESITY DUE TO EXCESS CALORIES SNOMED Code(s): 722154061
[2018-06-29] MEDS: DEXAMETHASONE SOD PHOSPHATE 10 MG/ML 1 ML VIAL IV STA (17:22)
[2018-06-29] MEDS: MAG HYDROX/AL HYDROX/SIMETH 30 ML, HYOSCYAMINE ELIXIR 10 ML, CIMETIDINE HCL 300 MG, LID... PO SCH ×4 (20:12)
[2018-06-29] MEDS: PIPERACILLIN-TAZOBACTAM 3.375 GM in DEXTROSE/WATER 1 50ML.BAG IVPB SCH (20:12)
[2018-06-29] MEDS: PANTOPRAZOLE 40 MG/10 ML VIAL IVP SCH (20:32)
[2018-06-29] MEDS: ACETAMINOPHEN TAB 325 MG TAB PO PRN (23:50)
--- NOTE | 2018-06-30 00:05 | CONS ---
CONSULTATION DATE OF SERVICE: 06/29/2018. REASON FOR CONSULTATION: Advice regarding GERD and multiple medical issues, requested by surgery. HISTORY OF PRESENT ILLNESS: This 28-year-old woman with a past history of anxiety, depression, history of GERD, being followed by Dr. Fox in the outpatient setting, is having upper abdominal pain which is radiating from the right to left for the last 2-1/2 weeks. The patient also complains of vomiting and nausea. The patient is unable to keep anything down. The patient has also seen Dr. Ferrara as an outpatient. Because of increased symptomatology, patient came to [facility] for further evaluation and treatment. The patient was found to be dehydrated and a CT scan of the abdomen and pelvis was done and as well as ultrasound which showed gallbladder sludge. There is no history of fevers or rigors, no history of headache, loss of consciousness, or seizures. PAST MEDICAL HISTORY: History of GERD, history of adenoidectomy and tonsillectomy, history of anxiety and depression. MEDICATIONS: Prior to admission, home medications are: 1. Mylicon 40 mg p.r.n. 2. Zofran 8 mg daily. 3. Omeprazole 40 mg daily. 4. Sprintec 1 tablet p.o. at bedtime. 5. Tylenol 500 mg every 6 hours p.r.n. ALLERGIES: ADHESIVE TAPE, BEE VENOM, TRINTELLIX. FAMILY HISTORY: History of atrial fibrillation, hypertension. SOCIAL HISTORY: History of smoking. No history of alcohol intake. REVIEW OF SYSTEMS: ENT: No diminished vision. CARDIOVASCULAR: No angina. RESPIRATORY: As mentioned. GI: No nausea. : No dysuria or hematuria. NERVOUS SYSTEM: No numbness or weakness. ALLERGY/IMMUNOLOGY: No asthma or hayfever. MUSCULOSKELETAL: As mentioned. HEMATOLOGY: No anemia. ENDOCRINE: No history of diabetes or hypothyroidism. CONSTITUTIONAL: As mentioned earlier. PSYCHIATRY: As mentioned earlier. PHYSICAL EXAMINATION: Alert, oriented x3. Pulse 78, blood pressure 124/77, respirations 16, temperature 98 degrees, pulse ox 98% on room air. HEENT: Conjunctivae normal. Oral mucosa moist. NECK: No JVD. LYMPH: No lymph node enlargement. CARDIOVASCULAR: S1 and S2 muffled. LUNGS: Breath sounds diminished at the bases. No rhonchi, no crackles. ABDOMEN: Soft. Mild diffuse discomfort in the upper abdomen. Otherwise no guarding and no rigidity. No mass palpable. EXTREMITIES: Legs, no edema, no swelling. NERVOUS SYSTEM: Higher functions as mentioned earlier. Moves all 4 limbs. No focal motor weakness. LYMPH: No lymph nodes palpable in the neck, axillae or groin. SKIN: No rash. LABS: WBC 8.2, hemoglobin 15.6, sodium 140, potassium 3.5, total bilirubin is 2.1. AST is 87, ALT is 160, alkaline phosphatase is 88. ASSESSMENT: 1. Abdominal pain, possible cholelithiasis and cholecystitis. 2. Elevated bilirubin, increased AST and ALT, possibly secondary to cholelithiasis. 3. Obesity with body mass index 49.1. 4. History of gastroesophageal reflux disease. 5. Anxiety and depression. RECOMMENDATION: In this 28-year-old woman who presented with multiple medical problems, we will monitor the patient closely, continue the current management and symptomatic treatment. I would also continue with the surgical evaluation. DVT prophylaxis. Broad-spectrum IV antibiotics have been initiated. IV fluids cautiously. Repeat labs. We will follow the patient closely. The patient may be asked to follow up with Dr. Fox in the outpatient setting. Thank you, Dr. Ferrara, for letting us participate in the care of this patient. MMODL / IJN: [id number] /
[2018-06-30] MEDS: SODIUM CHLORIDE 0.9% 1,000 ML IV SCH (03:05)
[2018-06-30] MEDS: PIPERACILLIN-TAZOBACTAM 3.375 GM in DEXTROSE/WATER 1 50ML.BAG IVPB SCH ×3 (04:29→20:20)
[2018-06-30] MEDS: ONDANSETRON 4 MG/2 ML VIAL IVP PRN ×4 (04:35→21:11)
[2018-06-30 07:30] LABS: ALT 136 U/L (9-52); AST 70 U/L (14-36); Albumin 3.4 g/dL (3.5-5.0); Alkaline Phosphatase 60 U/L (38-126); Anion Gap 14 mmol/L; Blood Urea Nitrogen 5 mg/dL (7-17); Calcium 8.7 mg/dL (8.4-10.2); Carbon Dioxide 21 mmol/L (22-30); Chloride 105 mmol/L (98-107); Glucose 106 mg/dL (74-99); Potassium 3.4 mmol/L (3.5-5.1); Sodium 140 mmol/L (137-145); Total Bilirubin 1.3 mg/dL (0.2-1.3); Total Protein 6.1 g/dL (6.3-8.2)
[2018-06-30] MEDS: PANTOPRAZOLE 40 MG/10 ML VIAL IVP SCH ×2 (07:38→20:20)
[2018-06-30] MEDS: HEPARIN SODIUM,PORCINE 5,000 UNIT/ML 1 ML VIAL SQ SCH ×2 (07:38→21:11)
[2018-06-30] MEDS: MAG HYDROX/AL HYDROX/SIMETH 30 ML, HYOSCYAMINE ELIXIR 10 ML, CIMETIDINE HCL 300 MG, LID... PO SCH ×8 (07:39→20:20)
[2018-06-30 07:43] LABS: Basophils % (A) 0 %; Eosinophils % (A) 0 %; HCT 37.6 % (34.0-46.0); Lymphocytes # (A) 0.7 k/uL (1.0-4.8); Lymphocytes % (A) 22 %; MCH 28.5 pg (25.0-35.0); MCHC 32.9 g/dL (31.0-37.0); MCV 86.5 fL (80.0-100.0); Mean Platelet Volume 9.4; Monocytes # (A) 0.2 k/uL (0-1.0); Monocytes % (A) 5 %; Neutrophils # (A) 2.4 k/uL (1.3-7.7); Neutrophils % (A) 72 %; Platelet Count 145 k/uL (150-450); RBC 4.35 m/uL (3.80-5.40); RDW 14.3 % (11.5-15.5); WBC 3.3 k/uL (3.8-10.6)
[2018-06-30 07:44] LABS: HGB 12.4 gm/dL (11.4-16.0)
[2018-06-30] MEDS ORDERED: IV FLUID CONTINUATION 950 ML IV ONE (09:42)
[2018-06-30] MEDS: DEXAMETHASONE SOD PHOSPHATE 10 MG/ML 1 ML VIAL IV STA (09:43)
[2018-06-30] MEDS ORDERED: METOCLOPRAMIDE 5 MG/ML 2 ML VIAL IVP ONE (09:43)
[2018-06-30] MEDS ORDERED: NEOSTIGMINE 1 MG/ML 10 ML VIAL ONE (09:44)
[2018-06-30] MEDS ORDERED: ROCURONIUM BROMIDE 10 MG/ML 10 ML VIAL IV ONE (09:44)
[2018-06-30] MEDS ORDERED: SUCCINYLCHOLINE CHLORIDE VIAL 200 MG/10 ML VIAL IV ONE (09:44)
[2018-06-30] MEDS ORDERED: PROPOFOL 10 MG/ML 20 ML VIAL IV ONE (09:44)
[2018-06-30] MEDS ORDERED: MIDAZOLAM 2 MG/2 ML VIAL ONE (09:44)
[2018-06-30] MEDS ORDERED: LIDOCAINE 1% INJ 10MG/ML (20 ML MDV) ONE (09:44)
[2018-06-30] MEDS ORDERED: GLYCOPYRROLATE 0.2 MG/ML 2 ML VIAL ONE (09:44)
[2018-06-30] MEDS ORDERED: fentaNYL (PF) 50 MCG/ML 2 ML AMP ONE (09:44)
[2018-06-30] MEDS ORDERED: BUPIVACAIN-EPI 0.5%-1:200,000 30 ML VIAL SQ ONE (10:23)
[2018-06-30] MEDS: HYDROmorphone 1 MG/ML 1 ML SYRINGE IVP ONE ×4 (11:08→11:29)
[2018-06-30] MEDS: HYDROmorphone 1 MG/ML 1 ML SYRINGE IVP PRN ×3 (16:53→21:41)
--- NOTE | 2018-06-30 20:24 | PN ---
PROGRESS NOTE DATE OF SERVICE: 06/30/2018 INTERVAL HISTORY: This 28-year-old woman who was admitted with abdominal pain, cholecystitis and cholelithiasis, underwent laparoscopic cholecystectomy by Dr. Ferrara today. No chest pain. No palpitations. No fever. Patient is slightly drowsy after the procedure. PHYSICAL EXAMINATION: On exam, alert, oriented, x2, arousable. Pulse 78, blood pressure 118/60 respirations 16, temperature 97.5, pulse ox 100 percent on 2 L. HEENT is conjunctivae normal. Oral mucosa moist. Neck is no jugular venous distention. No carotid bruit. No lymph node enlargement. Cardiovascular system: S1, S2 muffled. Respiration: Breath sounds diminished in the bases. No rhonchi. No crackles. Abdomen soft, status post surgery. Legs are no edema, no swelling. Central nervous system: No focal deficits. LABORATORY DATA: WBC 3.3 and sodium 140, potassium 3.4. AST and ALT noted. ASSESSMENT: 1. Abdominal pain possible cholelithiasis and cholecystitis status post laparoscopic cholecystectomy. 2. Elevated bilirubin, increased AST, ALT, possibly secondary to cholelithiasis. 3. Obesity with body mass 49.1. 4. Dehydration on admission. 5. History of gastroesophageal reflux disease. 6. Anxiety, depression. RECOMMENDATIONS AND DISCUSSION: Recommend to continue current medications, management and symptomatic treatment. Incentive spirometry. DVT prophylaxis. Closely follow with surgery. Further recommendations recommendations to follow. MMSMITHL / IVETTEN: [id number] /
[2018-06-30] MEDS: METOCLOPRAMIDE 5 MG/ML 2 ML VIAL IVP SCH (21:11)
[2018-06-30] MEDS: 0.9% NACL WITH KCL 40 MEQ/L 1,000 ML IV SCH (23:39)
[2018-07-01] MEDS: ONDANSETRON 4 MG/2 ML VIAL IVP PRN ×2 (02:33→07:42)
[2018-07-01] MEDS: PIPERACILLIN-TAZOBACTAM 3.375 GM in DEXTROSE/WATER 1 50ML.BAG IVPB SCH ×2 (04:13→12:02)
[2018-07-01] MEDS: METOCLOPRAMIDE 5 MG/ML 2 ML VIAL IVP SCH ×4 (06:38→23:57)
[2018-07-01 06:53] LABS: Basophils % (A) 0 %; Eosinophils % (A) 0 %; HGB 12.1 gm/dL (11.4-16.0); Lymphocytes # (A) 1.3 k/uL (1.0-4.8); Lymphocytes % (A) 23 %; MCH 28.2 pg (25.0-35.0); MCHC 32.7 g/dL (31.0-37.0); MCV 86.4 fL (80.0-100.0); Mean Platelet Volume 9.5; Monocytes # (A) 0.5 k/uL (0-1.0); Monocytes % (A) 8 %; Neutrophils # (A) 3.8 k/uL (1.3-7.7); Neutrophils % (A) 67 %; Platelet Count 126 k/uL (150-450); RBC 4.29 m/uL (3.80-5.40); RDW 14.3 % (11.5-15.5); WBC 5.7 k/uL (3.8-10.6)
[2018-07-01 07:00] LABS: ALT 178 U/L (9-52); AST 101 U/L (14-36); Albumin 3.1 g/dL (3.5-5.0); Alkaline Phosphatase 57 U/L (38-126); Anion Gap 10 mmol/L; Blood Urea Nitrogen 5 mg/dL (7-17); Calcium 8.5 mg/dL (8.4-10.2); Carbon Dioxide 25 mmol/L (22-30); Chloride 105 mmol/L (98-107); Glucose 95 mg/dL (74-99); Potassium 3.2 mmol/L (3.5-5.1); Sodium 140 mmol/L (137-145); Total Bilirubin 1.4 mg/dL (0.2-1.3); Total Protein 5.7 g/dL (6.3-8.2)
[2018-07-01] MEDS: HEPARIN SODIUM,PORCINE 5,000 UNIT/ML 1 ML VIAL SQ SCH ×2 (07:41→20:19)
[2018-07-01] MEDS: PANTOPRAZOLE 40 MG/10 ML VIAL IVP SCH ×2 (07:41→20:19)
[2018-07-01] MEDS: MAG HYDROX/AL HYDROX/SIMETH 30 ML, HYOSCYAMINE ELIXIR 10 ML, CIMETIDINE HCL 300 MG, LID... PO SCH ×4 (09:17)
[2018-07-01] MEDS: POTASSIUM CHLORIDE ER 20 MEQ TAB.ER PO SCH ×2 (09:21→13:31)
[2018-07-01] MEDS ORDERED: ACETAMINOPHEN IV (For NPO) 1,000 MG in EMPTY BAG 1 BAG IVPB STA (10:25)
[2018-07-01] MEDS: 0.9% NACL WITH KCL 40 MEQ/L 1,000 ML IV SCH ×2 (10:26→15:48)
[2018-07-01] MEDS ORDERED: SODIUM CHLORIDE 0.9% 1,000 ML IV ONE (10:26)
[2018-07-01] MEDS ORDERED: DEXAMETHASONE SOD PHOSPHATE 10 MG/ML 1 ML VIAL IV STA (10:27)
--- NOTE | 2018-07-01 11:44 | P.PN ---
Subjective Progress Note Date: 07/01/18 Principal diagnosis: Acute cholecystitis. Status post cholecystectomy Patient is a 28-year-old female was admitted to hospital with abdominal pain and acute cholecystitis and cholelithiasis. A garrido underwent laparoscopic cystectomy neck to by Dr. Crockett. 07/01/2018 Patient is still having nausea and episode of vomiting this morning. Abdominal pain improved otherwise. Patient does have some headache and nausea currently. Patient denied any flatness or bowel movement. No fever no chills. Patient did have a shower and felt better. No other acute overnight issues. Hyperkalemia is being replaced with IV potassium. All other review of systems negative except the above Discussed with her mother at bedside. Current medications reviewed Objective - Vital Signs Vital signs: Vital Signs Temp 97.5 F L 07/01/18 07:55 Pulse 81 07/01/18 07:55 Resp 20 07/01/18 07:55 BP 118/74 07/01/18 07:55 Pulse Ox 94 L 07/01/18 07:55 Intake & Output 06/30/18 07/01/18 07/01/18 18:59 06:59 18:59 Intake Total 680 Output Total 205 300 150 Balance 475 -300 -150 Intake: IV 650 Oral 30 Output: Urine 200 300 150 Estimated Blood Loss 5 Other: # Voids 1 - Exam PHYSICAL EXAMINATION: Patient is lying in the bed comfortably, no acute distress, awake alert and oriented.. HEENT: Normocephalic. Neck is supple. Pupils reactive. Nostrils clear. Oral cavity is moist. Ears reveal no drainage. Neck reveals no JVD, carotid bruits, or thyromegaly. CHEST EXAMINATION: Trachea is central. Symmetrical expansion. Lung gómez clear to auscultation and percussion. CARDIAC: Normal S1, S2 with no gallops. No murmurs ABDOMEN: Soft. Surgical site intact. Mild tenderness. Bowel sounds normal. No organomegaly. No abdominal bruits. Extremities: reveal no edema. No clubbing or cyanosis Neurologically awake, alert, oriented x3 with well-coordinated movements. No focal deficits noted Skin: No rash or skin lesions. Psychiatric: Coperative. Nonsuicidal Musculoskeletal: No joint swelling or deformity. Normal range of motion. - Labs CBC & Chem 7: 07/01/18 06:37 07/01/18 06:37 Labs: Abnormal Lab Results - Last 24 Hours (Table) 07/01/18 07/01/18 Range/Units 06:37 06:37 Plt Count 126 L (150-450) k/uL Potassium 3.2 L (3.5-5.1) mmol/L BUN 5 L (7-17) mg/dL Total Bilirubin 1.4 H (0.2-1.3) mg/dL AST 101 H (14-36) U/L ALT 178 H (9-52) U/L Total Protein 5.7 L (6.3-8.2) g/dL Albumin 3.1 L (3.5-5.0) g/dL Microbiology - Last 24 Hours (Table) 06/29/18 06:45 Blood Culture - Preliminary Blood No Growth after 48 hours 06/29/18 09:09 Urine Culture - Final Urine,Clean Catch Assessment and Plan Assessment: Abdominal pain secondary to acute cholecystitis with cholelithiasis. Status post laparoscopic cholecystectomy Elevated bilirubin, increased AST LT secondary to cholelithiasis and cholecystitis Obesity BMI 49.1 GERD Anxiety and depression DVT prophylaxis with heparin subcu Plan: Patient will be continued on pain medications and bowel regimen. Continue the antibiotics and replace electrolytes. Encourage ambulation and incentive spirometry. Current with IV fluids and follow closely. Further recommendations based on the clinical course. Time with Patient: Greater than 30
[2018-07-01] MEDS: POTASSIUM CHLORIDE 20 MEQ in WATER FOR INJECTION 1 100ML.BAG IVPB SCH ×2 (12:03→15:19)
--- NOTE | 2018-07-01 12:03 | P.PN ---
Subjective Progress Note Date: 07/01/18 28-year-old female seen ambulating to the shower this morning continues to report having persistent nausea sensation poor oral intake. Potassium was noted to be 3.2 in which replacement is being given. Afebrile. White count 5.7 total bili down 1.4. Urine culture is negative. Surgical incision sites dry. Patient states pain medication effective for pain control abdomen is soft surgical tenderness appropriate Patient underwent laparoscopic cholecystectomy on June 30. Objective - Vital Signs Vital signs: Vital Signs Temp 97.5 F L 07/01/18 07:55 Pulse 81 07/01/18 07:55 Resp 20 07/01/18 07:55 BP 118/74 07/01/18 07:55 Pulse Ox 94 L 07/01/18 07:55 Intake & Output 06/30/18 07/01/18 07/01/18 18:59 06:59 18:59 Intake Total 680 Output Total 205 300 150 Balance 475 -300 -150 Intake: IV 650 Oral 30 Output: Urine 200 300 150 Estimated Blood Loss 5 Other: # Voids 1 - Exam Physical exam 28 year old female sitting up in bed states continues to have a nausea sensation no active emesis Lungs adequate air movement bilaterally on room air Heart S1-S2 audible regular abdomen obese soft nontender surgical tenderness appropriate surgical dressing sites dry nausea no active emesis bowel sounds present states belching urinating no difficulty no stool Extremities no edema noted. - Labs CBC & Chem 7: 07/01/18 06:37 07/01/18 06:37 Labs: Abnormal Lab Results - Last 24 Hours (Table) 07/01/18 07/01/18 Range/Units 06:37 06:37 Plt Count 126 L (150-450) k/uL Potassium 3.2 L (3.5-5.1) mmol/L BUN 5 L (7-17) mg/dL Total Bilirubin 1.4 H (0.2-1.3) mg/dL AST 101 H (14-36) U/L ALT 178 H (9-52) U/L Total Protein 5.7 L (6.3-8.2) g/dL Albumin 3.1 L (3.5-5.0) g/dL Microbiology - Last 24 Hours (Table) 06/29/18 06:45 Blood Culture - Preliminary Blood No Growth after 48 hours 06/29/18 09:09 Urine Culture - Final Urine,Clean Catch Assessment and Plan Assessment: Impression Status post June 30 this copy cholecystectomy Present on admission right upper quadrant abdominal pain Intractable nausea vomiting 2 weeks. History 30 days ago of a sleep gastrotomy for morbid obesity Esophageal reflux disease Elevated liver enzymes and elevated total bili trending down present on admission suspect due to cholecystitis Symptomatic gallstone with epigastric and right upper quadrant abdominal pain present on admission Persistent nausea vomiting postop suspect due to analgesics anesthesia Plan IV fluid bolus Clear liquid diet advance as tolerated Anti-emetics as ordered Pain control Continue with postop surgical care Increase activity Will follow The above impression and plan of care have been discussed and directed by signing physician. Karina Ravi nurse practitioner acting as scribe for signing physician.
[2018-07-02] MEDS: MAG HYDROX/AL HYDROX/SIMETH 30 ML, HYOSCYAMINE ELIXIR 10 ML, CIMETIDINE HCL 300 MG, LID... PO SCH ×8 (00:03→08:46)
[2018-07-02] MEDS ORDERED: MELATONIN 5 MG TABLET PO PRN (03:12)
[2018-07-02] MEDS: 0.9% NACL WITH KCL 40 MEQ/L 1,000 ML IV SCH ×2 (04:59→12:03)
[2018-07-02] MEDS: METOCLOPRAMIDE 5 MG/ML 2 ML VIAL IVP SCH ×2 (06:13→12:06)
[2018-07-02] MEDS: HEPARIN SODIUM,PORCINE 5,000 UNIT/ML 1 ML VIAL SQ SCH (08:37)
[2018-07-02] MEDS: PANTOPRAZOLE 40 MG/10 ML VIAL IVP SCH (08:37)
[2018-07-02 09:00] LABS: ALT 235 U/L (9-52); AST 135 U/L (14-36); Albumin 3.4 g/dL (3.5-5.0); Alkaline Phosphatase 61 U/L (38-126); Anion Gap 14 mmol/L; Blood Urea Nitrogen 3 mg/dL (7-17); Calcium 8.7 mg/dL (8.4-10.2); Carbon Dioxide 27 mmol/L (22-30); Chloride 97 mmol/L (98-107); Glucose 98 mg/dL (74-99); Sodium 138 mmol/L (137-145); Total Bilirubin 1.3 mg/dL (0.2-1.3); Total Protein 6.1 g/dL (6.3-8.2)
[2018-07-02 09:05] LABS: Basophils % (A) 0 %; Eosinophils % (A) 1 %; HCT 36.3 % (34.0-46.0); HGB 12.6 gm/dL (11.4-16.0); Lymphocytes # (A) 1.3 k/uL (1.0-4.8); Lymphocytes % (A) 31 %; MCH 29.2 pg (25.0-35.0); MCHC 34.8 g/dL (31.0-37.0); Mean Platelet Volume 10.3; Monocytes # (A) 0.4 k/uL (0-1.0); Monocytes % (A) 10 %; Neutrophils # (A) 2.4 k/uL (1.3-7.7); Neutrophils % (A) 57 %; Platelet Count 113 k/uL (150-450); RBC 4.32 m/uL (3.80-5.40); WBC 4.2 k/uL (3.8-10.6)
[2018-07-02] MEDS: ONDANSETRON 4 MG/2 ML VIAL IVP PRN (09:08)
[2018-07-02] MEDS ORDERED: POTASSIUM BICARBONATE/CIT AC 20 MEQ TABLET.EFF PO ONE (10:09)
--- NOTE | 2018-07-02 10:18 | P.PN ---
Subjective Progress Note Date: 07/02/18 28 -year-old female seen ambulating in the room. Patient reports a nausea sensation no active emesis did note the potassium is 3 this morning magnesium is pending hemoglobin 12.6. Surgical incision sites dressings dry soft obese nontender with active bowel tones states no stool passing gas patient reportedly is tolerating a bariatric diet. Patient has a history of morbid obesity did undergo laparoscopic sleeve for morbid obesity on 05/24/2018 Patient underwent laparoscopic cholecystectomy on June 30. Objective - Vital Signs Vital signs: Vital Signs Temp 97.4 F L 07/02/18 08:15 Pulse 62 07/02/18 08:15 Resp 20 07/02/18 08:15 BP 123/79 07/02/18 08:15 Pulse Ox 95 07/02/18 08:15 Intake & Output 07/01/18 07/02/18 07/02/18 18:59 06:59 18:59 Intake Total 0 90 Output Total 950 300 Balance -950 -300 90 Intake: Oral 0 90 Output: Urine 950 300 Other: Voiding Method Toilet Toilet Toilet # Voids 1 1 - Exam Physical exam 28-year-old female ambulating in room reports a nausea sensation no active emesis Lungs clear adequate air movement on room air Heart S1-S2 audible regular Abdomen obese soft surgical dressing site dry surgical tenderness appropriate passing gas no stool urinating no difficulty tolerating diet reports a nausea sensation no emesis bowel tones present Extremities no edema noted bilaterally - Labs CBC & Chem 7: 07/02/18 08:28 07/02/18 08:28 Labs: Abnormal Lab Results - Last 24 Hours (Table) 07/02/18 07/02/18 Range/Units 08:28 08:28 Plt Count 113 L (150-450) k/uL Potassium 3.0 L (3.5-5.1) mmol/L Chloride 97 L (98-107) mmol/L BUN 3 L (7-17) mg/dL AST 135 H (14-36) U/L ALT 235 H (9-52) U/L Total Protein 6.1 L (6.3-8.2) g/dL Albumin 3.4 L (3.5-5.0) g/dL Microbiology - Last 24 Hours (Table) 06/29/18 06:45 Blood Culture - Preliminary Blood No Growth after 72 hours Assessment and Plan Assessment: Impression Status post June 30 laparoscopic cholecystectomy Present on admission right upper quadrant abdominal pain secondary to acute cholecystitis with cholelithiasis Intractable nausea vomiting 2 weeks. History 30 days ago of a laparoscopic sleeve for morbid obesity Esophageal reflux disease Elevated liver enzymes and elevated total bili trending down present on admission suspect due to acute cholecystitis with cholelithiasis Symptomatic gallstone with epigastric and right upper quadrant abdominal pain present on admission Persistent nausea vomiting postop suspect due to analgesics anesthesia Hypokalemia Plan IV fluid bolus Start bariatric diet Replace potassium follow-up on magnesium pending corrected if indicated Anti-emetics as ordered Pain control Continue with postop surgical care Increase activity Will follow The above impression and plan of care have been discussed and directed by signing physician. Karina Ravi nurse practitioner acting as scribe for signing physician.
[2018-07-02] MEDS: ACETAMINOPHEN TAB 325 MG TAB PO PRN (10:52)
[2018-07-02] MEDS: MAGNESIUM SULFATE-D5W PMX 1 GM in DEXTROSE/WATER 1 100ML.BAG IVPB SCH ×3 (10:52→13:08)
[2018-07-02 12:45] VITALS: BP 132/73; PULSE 86; RESP 16; TEMP 97.2
--- NOTE | 2018-07-02 14:42 | P.DS ---
Providers Date of admission: 06/29/18 11:06 Expected date of discharge: 07/02/18 Attending physician: Beni Ferrara Consults: 06/29/18 11:05 Consult Physician Urgent Consulting Provider: Garima Cassidy Consult Reason/Comments: medical care Do you want consulting provider notified?: Yes Primary care physician: Ana [facility] Course: 28-year-old female presented to the emergency room with a chief complaint of urinary tract symptoms. Patient stated she had been on an antibiotic for 2 weeks and continue to have pain when she urinated. Patient does have a history of a gastric sleeve surgery was done on May 2018 for morbid obesity. She states over the past several days she been nauseated and vomiting. Patient also reported having epigastric abdominal pain. Patient was sent into the emergency room to be evaluated by her PCP. Ultrasound was consistent with gallbladder sludge and gallbladder wall thickening. Liver enzymes were also elevated also elevated with total bilirubin. On the day of discharge patient was tolerating a diet up ambulatory on the unit pain medication effective for pain control had 2 bowel movements and stated the abdominal discomfort had improved plain Tylenol effective for pain control. Patient has a history of morbid obesity did undergo laparoscopic sleeve for morbid obesity on 05/24/2018 On June 30 the patient did undergo laparoscopic cholecystectomy for cholecystitis. Patient was felt to be appropriate to proceed with a discharge to home Impression Status post June 30 laparoscopic cholecystectomy Present on admission right upper quadrant abdominal pain secondary to acute cholecystitis with cholelithiasis Intractable nausea vomiting 2 weeks. History 30 days ago of a laparoscopic sleeve for morbid obesity Esophageal reflux disease Elevated liver enzymes and elevated total bili trending down present on admission suspect due to acute cholecystitis with cholelithiasis Symptomatic gallstone with epigastric and right upper quadrant abdominal pain present on admission Persistent nausea vomiting postop suspect due to analgesics anesthesia Hypokalemia corrected resolved Urinary tract infection was ruled out urine culture was negative The above impression and plan of care have been discussed and directed by signing physician. Karina Ravi nurse practitioner acting as scribe for signing physician. Plan - Discharge Summary Discharge Rx Participant: No New Discharge Prescriptions: New Acetaminophen Tab [Tylenol] 650 mg PO Q6HR PRN tab PRN Reason: Mild Pain Or Fever > 100.5 Mag Hydrox/Al Hydrox/Simeth [Maalox] 30 ml PO BID cup Melatonin 5 mg PO HS PRN tablet PRN Reason: Insomnia Continue Norgestimate-Ethinyl Estradiol [Sprintec 28 Day Tablet] 1 tab PO HS Simethicone 40 mg/0.6 ml Drops [Mylicon Drops] 40 mg PO PCHS PRN #30 ml PRN Reason: Gas Omeprazole 40 mg PO DAILY #60 capsule. Acetaminophen Tab [Tylenol] 500 mg PO Q6HR PRN PRN Reason: Pain Ondansetron HCl [Zofran] 8 mg PO Q8H PRN PRN Reason: Nausea Discharge Medication List Norgestimate-Ethinyl Estradiol [Sprintec 28 Day Tablet] 1 tab PO HS 09/20/17 [ History] Omeprazole 40 mg PO DAILY #60 capsule. 05/24/18 [Rx] Simethicone 40 mg/0.6 ml Drops [Mylicon Drops] 40 mg PO PCHS PRN #30 ml [Rx] Acetaminophen Tab [Tylenol] 500 mg PO Q6HR PRN 06/29/18 [History] Ondansetron HCl [Zofran] 8 mg PO Q8H PRN 06/29/18 [History] Acetaminophen Tab [Tylenol] 650 mg PO Q6HR PRN tab 07/02/18 [Rx] Mag Hydrox/Al Hydrox/Simeth [Maalox] 30 ml PO BID cup 07/02/18 [Rx] Melatonin 5 mg PO HS PRN tablet 07/02/18 [Rx] Follow up Appointment(s)/Referral(s): Ana Fox III, MD [Primary Care Provider] - 07/04/18 9:00 am (Dr. Vance) Beni Ferrara MD [STAFF PHYSICIAN] - 07/10/18 3:15 pm (Dr. Ferrara) Activity/Diet/Wound Care/Special Instructions: No tub bath for six weeks. Shower daily. No lifting over 10 pounds for the next 6 weeks. Resume bariatric diet. May use ice packs to surgical site. Discharge Disposition: HOME SELF-CARE
--- NOTE | 2018-07-02 23:18 | P.PN ---
Subjective Progress Note Date: 07/02/18 Principal diagnosis: Acute cholecystitis. Status post cholecystectomy Patient is a 28-year-old female was admitted to hospital with abdominal pain and acute cholecystitis and cholelithiasis. A garrido underwent laparoscopic cystectomy neck to by Dr. Crockett. 07/01/2018 Patient is still having nausea and episode of vomiting this morning. Abdominal pain improved otherwise. Patient does have some headache and nausea currently. Patient denied any flatness or bowel movement. No fever no chills. Patient did have a shower and felt better. No other acute overnight issues. Hyperkalemia is being replaced with IV potassium. 07/02/2018 Patient denied any new complaints today. Tolerating oral diet. No nausea vomiting. Patient is able to pass flatness. No bowel movement otherwise. Patient is a being discharged home today. No acute overnight issues otherwise. All other review of systems negative except the above Discussed with her mother at bedside. Current medications reviewed Objective - Vital Signs Vital signs: Vital Signs Temp 97.2 F L 07/02/18 12:10 Pulse 86 07/02/18 12:10 Resp 16 07/02/18 12:10 BP 132/73 07/02/18 12:10 Pulse Ox 93 L 07/02/18 12:10 Intake & Output 07/02/18 07/02/18 07/03/18 06:59 18:59 06:59 Intake Total 1500 Output Total 300 2 Balance -300 1498 Intake: Intake, IV Titration 1100 Amount 0.9% NaCl with KCl 40 Meq 800 /l 1,000 ml @ 100 mls/hr IV .Q10H MICAELA Rx#: [id number] Magnesium Sulfate-D5w Pmx 300 1 gm In Dextrose/Water 1 100ml.bag @ 100 mls/hr IVPB Q1H MICAELA Rx#: [id number] Oral 400 Output: Urine 300 2 Other: Voiding Method Toilet Toilet # Voids 1 3 # Bowel Movements 2 - Exam PHYSICAL EXAMINATION: Patient is lying in the bed comfortably, no acute distress, awake alert and oriented.. HEENT: Normocephalic. Neck is supple. Pupils reactive. Nostrils clear. Oral cavity is moist. Ears reveal no drainage. Neck reveals no JVD, carotid bruits, or thyromegaly. CHEST EXAMINATION: Trachea is central. Symmetrical expansion. Lung gómez clear to auscultation and percussion. CARDIAC: Normal S1, S2 with no gallops. No murmurs ABDOMEN: Soft. Surgical site intact. Mild tenderness. Bowel sounds normal. No organomegaly. No abdominal bruits. Extremities: reveal no edema. No clubbing or cyanosis Neurologically awake, alert, oriented x3 with well-coordinated movements. No focal deficits noted Skin: No rash or skin lesions. Psychiatric: Coperative. Nonsuicidal Musculoskeletal: No joint swelling or deformity. Normal range of motion. - Labs CBC & Chem 7: 07/02/18 08:28 07/02/18 08:28 Labs: Abnormal Lab Results - Last 24 Hours (Table) 07/02/18 07/02/18 Range/Units 08:28 08:28 Plt Count 113 L (150-450) k/uL Potassium 3.0 L (3.5-5.1) mmol/L Chloride 97 L (98-107) mmol/L BUN 3 L (7-17) mg/dL AST 135 H (14-36) U/L ALT 235 H (9-52) U/L Total Protein 6.1 L (6.3-8.2) g/dL Albumin 3.4 L (3.5-5.0) g/dL Microbiology - Last 24 Hours (Table) 06/29/18 06:45 Blood Culture - Preliminary Blood No Growth after 72 hours Assessment and Plan Assessment: Abdominal pain secondary to acute cholecystitis with cholelithiasis. Status post laparoscopic cholecystectomy Elevated bilirubin, increased AST LT secondary to cholelithiasis and cholecystitis Obesity BMI 49.1 GERD Anxiety and depression DVT prophylaxis with heparin subcu Plan: Patient will be continued on pain medications and bowel regimen. Continue to replace electrolytes. Encourage ambulation and incentive spirometry. Patient did improve symptomatically. Patient is being discharged today.
--- NOTE | 2018-07-14 16:11 | P.OP ---
Date of Procedure: 06/29/18 Preoperative Diagnosis: Cholecystitis Postoperative Diagnosis: Cholecystitis Procedure(s) Performed: Laparoscopic cholecystectomy Anesthesia: MIMI Surgeon: Beni Ferrara Estimated Blood Loss (ml): 5 Pathology: other (gall bladder) Disposition: PACU Description of Procedure: The patient was placed on the operating table. The patient received a general endotracheal tube anesthesia. The patients abdomen was prepped and draped in the usual sterile fashion. Through an infraumbilical stab incision, the fascia of the anterior abdominal wall was grasped with a pair of Kochers and then the Veress needle was placed in the peritoneal cavity. Position of the Veress needle was confirmed with positive drop test. The abdomen was then insufflated. After adequate insufflation, the 10 mm trocar was placed in the peritoneal cavity. Following this the laparoscope was placed in the peritoneal cavity. The patient was placed in the head-up, right side up position and then a 5 mm trocar was placed in the right lateral and right subcostal position under direct visualization. A 8 mm trocar was placed in the epigastric position. The gallbladder was grasped in the fundus and infundibulum. Traction on the gallbladder was placed in the lateral and the cephalad positions. The triangle of Calot was visualized.. The cystic duct was bluntly dissected until the union of the cystic duct and common bile duct was seen. The cystic duct was then divided and sealed with the Harmonic scissors. A PDS Endoloop was then placed throughout the cystic duct stump. The cystic artery divided and sealed with the Harmonic scissors. The gallbladder was then removed from the liver bed using Harmonic scissors. The gallbladder was then extracted through the epigastric port site. Operative field was checked for any bleeding spots and Harmonic scissors was used to coagulate the liver bed. The abdomen was irrigated. The trocars were removed. The skin was closed using interrupted 3-0 Vicryl suture. Dermabond dressing were applied. The patient tolerated the procedure well.
== END 2018-07-02 15:26 | disposition home or self-care (01) | DRG 418 ==
LOC: EC 06:26 → 6PED 11:06
PROVIDERS: ADMIT Surgery; ATTEND Surgery
PROC: 0FT44ZZ Resection of Gallbladder, Percutaneous Endoscopic Approach (ICD-10-PCS; principal; 2018-06-29)
DX: K80.00 Calculus of gallbladder with acute cholecystitis without obstruction (principal); Z68.42 Body mass index [BMI] 45.0-49.9, adult; E66.01 Morbid (severe) obesity due to excess calories; E86.0 Dehydration; F32.9 Major depressive disorder, single episode, unspecified; F41.9 Anxiety disorder, unspecified; K21.9 Gastro-esophageal reflux disease without esophagitis; Z82.49 Family history of ischemic heart disease and other diseases of the circulatory system; Z87.891 Personal history of nicotine dependence; Z98.84 Bariatric surgery status; Z79.899 Other long term (current) drug therapy; Z88.8 Allergy status to other drugs, medicaments and biological substances; Z91.030 Bee allergy status; E87.6 Hypokalemia
CPT/HCPCS: 36415; 74177; 76705; 80053; 81001; 81025; 83605; 83735; 84484; 84703; 85025; 85610; 85730; 87040; 87086; 88304; 93005; 96361; 96374; 96375; 99285

== ENCOUNTER → 2018-07-14 | Outpatient (CLI) | payer SELFPAY ==
[2018-07-14 15:19] VITALS: BP 119/71; PULSE 71; TEMP 100; BMI 48.9
--- NOTE | 2018-07-14 15:20 | P.HPBAR ---
Bariatric H&P - History & Physicial H&P Date: 07/14/18 History & Physicial: Visit/CC: Patient initial contact: Initial weight: 151.046 kg Initial weight in pounds: Height: Initial BMI: Last weight: Current weight: Current weight in pounds: Current BMI: [place] body weight (based on NIH guidelines): Excess body weight loss: The patient is a 28 year-old F who presents for Bariatric Assessment. Patient resents today for sleeve gastrectomy fall. She's loss approximately 25 pounds her last visit. She has had some minimal GERD. She denies a significant dysphagia. Patient had her gallbladder removed last month. Past Medical History Past Medical History: GERD/Reflux History of Any Multi-Drug Resistant Organisms: None Reported Past Surgical History: Adenoidectomy, Tonsillectomy Additional Past Surgical History / Comment(s): T & A at age ~9. gastric sleeve Past Anesthesia/Blood Transfusion Reactions: No Reported Reaction Past Psychological History: Anxiety, Depression Smoking Status: Never smoker Past Alcohol Use History: Rare Past Drug Use History: None Reported - Past Family History Mother Family Medical History: AFIB, Hypertension Father Family Medical History: Hypertension Additional Family Medical History / Comment(s): known history is limited regarding father Surgical - Exam - General well developed, no distress - Eyes PERRL - ENT normal pinna - Neck no masses - Respiratory normal expansion - Cardiovascular Rhythm: regular - Abdomen Abdomen: soft, non tender Bariatric Assessment & Plan Plan: Status post sleeve yesterday. Patient's GERD is minimal will be observed. She' ll follow-up in 4 weeks. Bariatric Checklist Checklist: Plan: Checklist: EGD: 1. Hiatal hernia: 2. H. Pylori: HgbA1c: Vitamin D: Smoking: Never smoker Primary care physician referral: Dr. Fox Psychiatry clearance: Cardiology clearance: Sleep study: Diet journal: VTE risk score: VTE risk level: Rehab needs at discharge:
== END ==
LOC: BARWHC3 14:48
PROVIDERS: ATTEND Surgery
DX: Z48.815 Encounter for surgical aftercare following surgery on the digestive system (principal); E66.01 Morbid (severe) obesity due to excess calories; K21.9 Gastro-esophageal reflux disease without esophagitis; Z98.84 Bariatric surgery status; Z68.42 Body mass index [BMI] 45.0-49.9, adult
CPT/HCPCS: 97803; 99211

== ENCOUNTER 2024-10-26 08:34 | Outpatient (CLI) | payer OTHER ==
[2024-10-26 10:10] LABS: Appearance,Urine Cloudy (Clear); Bacteria,Urine Many /hpf; Bilirubin,Urine Negative (Negative); Blood,Urine Negative (Negative); Color,Urine Yellow; Glucose,Urine (UA) Negative (Negative); Hyaline Casts,Urine 5 /lpf (0-2); Ketones,Urine Trace (Negative); Leukocyte Esterase,Urine Negative (Negative); Mucus,Urine Many /hpf; Nitrite,Urine Negative (Negative); PH, Urine 7.5 (5.0-8.0); Protein,Urine Trace (Negative); RBC,Urine 1 /hpf (0-5); Specific Gravity,Urine 1.022 (1.001-1.035); Squamous Epithelial Cell,Urine 4 /hpf (0-4); WBC,Urine 1 /hpf (0-5)
[2024-10-26 10:33] LABS: Influenza A Not Detected (Not Detectd); Influenza B Not Detected (Not Detectd); RSV Not Detected (Not Detectd)
[2024-10-26 10:56] VITALS: BP 110/56; PULSE 89; RESP 16; TEMP 97.9
== END 2024-10-26 10:53 | disposition home or self-care (01) ==
LOC: FBPOP 08:34
PROVIDERS: ATTEND Obstetrics & Gynecology
DX: Z53.9 Procedure and treatment not carried out, unspecified reason (principal)
CPT/HCPCS: 81001; 87086; 87636; G0463; 99213

== ENCOUNTER 2025-02-02 16:25 | Outpatient (CLI) | payer OTHER ==
[2025-02-02 17:21] VITALS: BP 121/71; PULSE 72; RESP 14; TEMP 97.5
--- NOTE | 2025-03-29 10:28 | P.MSEPDOC ---
Presenting Problems - Arrival Data Date of Arrival on Unit: 02/02/25 Time of Arrival on Unit: 16:30 Mode of Transport: Ambulatory - Complaint OB-Reason for Admission/Chief Complaint: Rule Out SROM Medical History - Information : 1 Para: 0 Term: 0 : 0 Abortions: Spontaneous or Elective: 0 Number of Living Children: 0 - Gestational Age Gestational Age by TOSHA (wks/days): 39 Weeks and 2 Days Review of Systems - Review of Systems Constitutional: No problems Breast: No problems ENT: No problems Cardiovascular: No problems Respiratory: No problems Gastrointestinal: No problems Genitourinary: No problems Musculoskeletal: No problems Neurological: No problems Skin: No problems Vital Signs - Temperature Temperature: 97.5 F Temperature Source: Temporal Artery Scan - Pulse Right Brachial Pulse Rate: 72 Pulse Assessment Method: Automatic Cuff - Respirations Respiratory Rate: 14 Oxygen Delivery Method: Room Air - Blood Pressure Right Arm Blood Pressure: 121/71 Blood Pressure Mean: 87 Blood Pressure Source: Automatic Cuff Medical Screen Scoring - Assessment - Baby A Baseline FHR: 135 Heart Rate - NICHD Category: Category I (Normal) NST: Reactive Physician Notification - Physician Notified Physician Notified Date: 02/02/25 Physician Notified Time: 16:45 Physician: Rachel Bonilla New Order Received: Yes - Notification Comment Comment: d/c home Maternal Triage Index - Maternal Triage Index Presenting for scheduled procedure w/no complaint: No - Stat/Priority 1 Stat Priority 1: No - Urgent/Priority 2 Urgent Priority 2: No - Prompt/Priority 3 Prompt Priority 3: No - Non-Urgent/Priority 4 Non-Urgent Priority 4: Yes Criteria Met for Priority 4: r/o SROM Disposition - Disposition OB Disposition: Discharge to home Discharge Date: 02/02/25 Discharge Time: 17:20 I agree with the RN Medical Screening Exam: Yes Case reviewed; plan agreed upon as documented in EMR&OBIX.: Yes Diagnosis: FALSE LABOR AT OR AFTER 37 COMPLETED WEEKS OF GESTATION
== END 2025-02-02 17:23 | disposition home or self-care (01) ==
LOC: FBPOP 16:25
PROVIDERS: ATTEND Obstetrics & Gynecology
DX: Z53.9 Procedure and treatment not carried out, unspecified reason (principal)
CPT/HCPCS: 59025; 84112

== ENCOUNTER 2025-02-04 06:00 | Inpatient (IN) | payer OTHER ==
[2025-02-04] MEDS ORDERED: TERBUTALINE 1 MG/ML VIAL SQ PRN (06:13)
[2025-02-04] MEDS ORDERED: CARBOPROST TROMETHAMINE 250 MCG/ML 1 ML AMP IM PRN (06:13)
[2025-02-04] MEDS ORDERED: OXYTOCIN 10 UNIT/ML 1 ML VIAL IM PRN (06:13)
[2025-02-04] MEDS ORDERED: METHYLERGONOVINE 0.2 MG/ML 1 ML AMP IM PRN (06:13)
[2025-02-04] MEDS ORDERED: TRANEXAMIC 1,000 MG/100ML-NACL 1,000 MG in EMPTY BAG 1 BAG IV PRN (06:13)
[2025-02-04] MEDS ORDERED: miSOPROStoL 200 MCG TAB PO PRN (06:13)
[2025-02-04] MEDS ORDERED: miSOPROStoL 200 MCG TAB RECTAL PRN (06:13)
[2025-02-04] MEDS: LACTATED RINGERS 1,000 ML IV SCH (06:32)
[2025-02-04] MEDS: OXYTOCIN 30 UNITS/500 ML NS 30 UNIT in SALINE 1 500ML.BAG IV SCH (06:40)
[2025-02-04 07:03] LABS: Basophils # (A) 0.04 10*3/uL (0.00-0.10); Basophils % (A) 0.4 %; Eosinophils # (A) 0.08 10*3/uL (0.04-0.35); Eosinophils % (A) 0.8 %; HCT 29.9 % (37.2-46.3); HGB 10.2 g/dL (12.0-15.0); Lymphocytes # (A) 2.84 10*3/uL (0.90-5.00); Lymphocytes % (A) 28.7 %; MCH 27.4 pg (27.0-32.0); MCHC 34.1 g/dL (32.0-37.0); MCV 80.4 fL (80.0-97.0); Mean Platelet Volume 11.8 fL (9.5-12.2); Monocytes # (A) 0.82 10*3/uL (0.20-1.00); Monocytes % (A) 8.3 %; Neutrophils % (A) 61.5 %; Platelet Count 222 10*3/uL (140-440); RBC 3.72 10*6/uL (4.10-5.20); RDW 13.6 % (11.5-14.5); WBC 9.91 10*3/uL (4.50-10.00)
--- NOTE | 2025-02-04 09:54 | P.HPOB ---
History of Present Illness H&P Date: 02/04/25 Chief Complaint: induction of labor 34-year-old G1, P0 presents at 39 weeks and 4 days for induction of labor. Her cervix is 1 to 2 cm dilated, 60% effaced, -2 station. She is lane irregularly. heart tones 135 with moderate variability and reactive, category 1. Review of Systems All systems: negative Constitutional: Denies chills, Denies fever Eyes: denies blurred vision, denies pain Ears, nose, mouth and throat: Denies headache, Denies sore throat Cardiovascular: Denies chest pain, Denies shortness of breath Respiratory: Denies cough Gastrointestinal: Denies abdominal pain, Denies diarrhea, Denies nausea, Denies vomiting Genitourinary: Denies dysuria, Denies hematuria Musculoskeletal: Denies myalgias Integumentary: Denies pruritus, Denies rash Neurological: Denies numbness, Denies weakness Psychiatric: Denies anxiety, Denies depression Endocrine: Denies fatigue, Denies weight change Past Medical History Past Medical History: GERD/Reflux History of Any Multi-Drug Resistant Organisms: None Reported Past Surgical History: Adenoidectomy, Tonsillectomy Additional Past Surgical History / Comment(s): T & A at age ~9. gastric sleeve Past Anesthesia/Blood Transfusion Reactions: No Reported Reaction Past Psychological History: Anxiety, Depression Smoking Status: Never smoker Past Alcohol Use History: Rare Past Drug Use History: None Reported - Past Family History Mother Family Medical History: AFIB, Hypertension Father Family Medical History: Hypertension Additional Family Medical History / Comment(s): known history is limited regarding father Medications and Allergies Home Medications Medication Instructions Recorded Confirmed Type RX: Omeprazole 40 mg PO DAILY #60 capsule. 05/24/18 02/04/25 Rx Vit No.179/Iron/Folic 1 tab PO ONCE 10/26/24 02/04/25 History [ Tablet] Aspirin [Children's Aspirin] 81 mg PO DAILY 11/21/24 02/04/25 History Allergies Allergy/AdvReac Type Severity Reaction Status Date / Time adhesive tape Allergy Rash/Hives Verified 02/04/25 06:15 bee venom protein (honey bee) Allergy Swelling Verified 02/04/25 06:15 vortioxetine Allergy Itching Verified 02/04/25 06:15 [From Trintellix] Exam Osteopathic Statement: *. No significant issues noted on an osteopathic structural exam other than those noted in the History and Physical/Consult. Vital Signs Temp Pulse Resp BP Pulse Ox 02/04/25 06:07 97.6 F 80 16 130/64 98 Intake and Output 02/03/25 02/04/25 02/04/25 22:59 06:59 14:59 Other: Weight 137.892 kg Heart: Regular rate and rhythm Lungs: Clear to auscultation bilaterally Abdomen: Soft, nontender Extremities: Negative Homans sign Results Result Diagrams: 02/04/25 06:25 Abnormal Lab Results - Last 24 Hours (Table) 02/04/25 Range/Units 06:25 RBC 3.72 L (4.10-5.20) 10*6/uL Hgb 10.2 L (12.0-15.0) g/dL Hct 29.9 L (37.2-46.3) % Assessment and Plan (1) 39 weeks gestation of Current Visit: Yes Status: Acute Code(s): Z3A.39 - 39 WEEKS GESTATION OF SNOMED Code(s): 07377780 (2) Encounter for induction of labor Current Visit: Yes Status: Acute Code(s): Z34.90 - ENCNTR FOR SUPRVSN OF NORMAL , UNSP, UNSP TRIMESTER SNOMED Code(s): 772227796 Plan: 1. Induction of labor with amniotomy and Pitocin 2. Anticipate normal vaginal delivery
[2025-02-04] MEDS ORDERED: ROPIVACAINE 5 MG/ML 30 ML VIAL ONE (10:24)
[2025-02-04] MEDS ORDERED: fentaNYL (PF) 50 MCG/ML 5 ML AMP ONE (10:24)
[2025-02-04] MEDS ORDERED: SODIUM CHLORIDE 0.9% 250 ML BAG ONE (10:24)
[2025-02-04] MEDS: LIDOCAINE 0.5% (PF) 5 MG/ML (50 ML SDV) SQ PRN (14:20)
[2025-02-04] MEDS ORDERED: SIMETHICONE 80 MG CHEWABLE PO PRN (15:01)
[2025-02-04] MEDS ORDERED: HYDROCORTISONE 2.5% RECTAL CREAM 30 GM TUBE RECTAL PRN (15:01)
[2025-02-04] MEDS ORDERED: diphenhydrAMINE 50 MG CAP PO PRN (15:01)
[2025-02-04] MEDS ORDERED: diphenhydrAMINE 25 MG CAP PO PRN (15:01)
[2025-02-04] MEDS ORDERED: ZOLPIDEM 5 MG TAB PO PRN (15:01)
[2025-02-04] MEDS ORDERED: LANOLIN CREAM 1 GM TUBE TOPICAL PRN (15:01)
[2025-02-04] MEDS ORDERED: diphenhydrAMINE 50 MG/ML 1 ML VIAL IVP PRN ×2 (15:01)
[2025-02-04] MEDS: BENZOCAINE/MENTHOL SPRAY 1 GM/SPRAY AEROSOL TOPICAL PRN (15:31)
[2025-02-04] MEDS: IBUPROFEN 800 MG TAB PO PRN (16:20)
[2025-02-04] MEDS: SENNOSIDES-DOCUSATE SODIUM 1 EACH TAB PO SCH (20:06)
[2025-02-05 06:34] LABS: Basophils # (A) 0.03 10*3/uL (0.00-0.10); Basophils % (A) 0.2 %; Eosinophils # (A) 0.03 10*3/uL (0.04-0.35); Eosinophils % (A) 0.2 %; HCT 29.1 % (37.2-46.3); HGB 9.5 g/dL (12.0-15.0); Lymphocytes # (A) 2.85 10*3/uL (0.90-5.00); Lymphocytes % (A) 21.2 %; MCHC 32.6 g/dL (32.0-37.0); MCV 82.7 fL (80.0-97.0); Mean Platelet Volume 11.4 fL (9.5-12.2); Monocytes # (A) 0.91 10*3/uL (0.20-1.00); Monocytes % (A) 6.8 %; Neutrophils # (A) 9.57 10*3/uL (1.80-7.70); Neutrophils % (A) 71.2 %; Platelet Count 193 10*3/uL (140-440); RBC 3.52 10*6/uL (4.10-5.20); RDW 13.7 % (11.5-14.5); WBC 13.45 10*3/uL (4.50-10.00)
[2025-02-05] MEDS: ACETAMINOPHEN TAB 500 MG TAB PO PRN (07:36)
--- NOTE | 2025-02-05 08:21 | P.PROBDLV ---
Vaginal Delivery Note - . Vaginal Delivery Note: Date of service February 04, 2025 34-year-old G1, P0 presents at 39 weeks and 4 days for induction of labor. Her cervix is 1 to 2 cm dilated, 60% effaced, -2 station. She is lane irregularly. heart tones 135 with moderate variability and reactive, category 1. Pitocin was started and amniotomy performed at 6:56 AM clear fluid noted. When she was uncomfortable she did get an epidural. Her cervix was completely dilated at 1401. She pushed, delivered a viable male infant over intact perineum under epidural anesthesia at 1416. Head delivered OA, nuchal cord x 1 easily reduced, anterior shoulder delivered gentle downward guidance followed by posterior shoulder and rest of body. Nose and mouth bulb suction, cord clamped, and cut, placed on mother's abdomen. Apgars 9, 9, weight 7 pounds 2 ounces. Placenta delivered spontaneously, intact with three-vessel cord at 1419. Vagina, cervix, perineum were inspected. Second-degree midline laceration was repaired with 3-0 Vicryl. Estimated blood loss 200 mL. Mother and baby in stable condition.
--- NOTE | 2025-02-05 08:23 | P.DS ---
Providers Date of admission: 02/04/25 06:03 Expected date of discharge: 02/05/25 Attending physician: Rachel Bonilla Primary care physician: Stated None - Discharge Diagnosis(es) (1) 39 weeks gestation of Current Visit: Yes Status: Resolved (2) Encounter for induction of labor Current Visit: Yes Status: Resolved (3) Status post normal vaginal delivery Current Visit: Yes Status: Acute Hospital Course: Patient presented for induction of labor. She underwent a normal vaginal delivery. course has been uneventful. She denies nausea, vomiting, chest pain, shortness of breath or calf pain. Patient will be discharged home post day #1 in stable condition to follow-up with me in 6 weeks. Plan - Discharge Summary New Discharge Prescriptions: New Ibuprofen [Motrin] 800 mg PO Q8HR PRN #30 tab PRN Reason: Pain No Action Omeprazole 40 mg PO DAILY #60 capsule. Vit No.179/Iron/Folic [ Tablet] 1 tab PO ONCE Aspirin [Children's Aspirin] 81 mg PO DAILY Discharge Medication List Omeprazole 40 mg PO DAILY #60 capsule. 05/24/18 [Rx] Vit No.179/Iron/Folic [ Tablet] 1 tab PO ONCE 10/26/24 [History] Aspirin [Children's Aspirin] 81 mg PO DAILY 11/21/24 [History] Ibuprofen [Motrin] 800 mg PO Q8HR PRN #30 tab 02/05/25 [Rx] Follow up Appointment(s)/Referral(s): Rachel Bonilla DO [Doctor of Osteopathic Medicine] - 03/15/25 3:15 pm Discharge Disposition: HOME SELF-CARE
[2025-02-06 09:34] VITALS: BP 116/80; PULSE 65; RESP 17; TEMP 97.4
== END 2025-02-06 11:00 | disposition home or self-care (01) | DRG 807 ==
LOC: 4FBP 06:03
PROVIDERS: ADMIT Obstetrics & Gynecology; ATTEND Obstetrics & Gynecology
PROC: 0KQM0ZZ Repair Perineum Muscle, Open Approach (ICD-10-PCS; principal; 2025-02-04)
PROC: 10E0XZZ Delivery of Products of Conception, External Approach (ICD-10-PCS; 2025-02-04)
PROC: 3E033VJ Introduction of Other Hormone into Peripheral Vein, Percutaneous Approach (ICD-10-PCS; 2025-02-04)
PROC: 10907ZC Drainage of Amniotic Fluid, Therapeutic from Products of Conception, Via Natural or Artificial Opening (ICD-10-PCS; 2025-02-04)
DX: O70.1 Second degree perineal laceration during delivery (principal); Z37.0 Single live birth; Z3A.39 39 weeks gestation of pregnancy; Z79.82 Long term (current) use of aspirin
CPT/HCPCS: 85025; 86850; 86900; 86901